=== PATIENT | male | born 1960 | race Caucasian/White ===

== ENCOUNTER 2019-08-06 21:35 | Emergency (ER) | payer MEDICAID ==
[~2019-08-06] VITALS: Ht 175.3 cm; Wt 100.0 kg
[~2019-08-06 21:35] MED LIST: APIX5TAB3 PO; ASPI-1265 PO; CARV3.12 PO; FURO40TA4 PO; LISI2.5T2 PO; OMEP-297 PO; SPIR25TA5 PO
[2019-08-06 22:25] LABS: BASOPHILS # (AUTO) 0.1 X10'3 (0-0.2); BASOPHILS % (AUTO) 1.2 % (0-1); EOSINOPHILS # (AUTO) 0.2 X10'3 (0-0.9); EOSINOPHILS % (AUTO) 2.6 % (0-6); HEMATOCRIT 47.1 % (42.0-52.0); HEMOGLOBIN 16.4 g/dl (14.0-17.9); LYMPHOCYTES # (AUTO) 2.3 X10'3 (1.1-4.8); LYMPHOCYTES % (AUTO) 31.4 % (21-51); MEAN CORPUSCULAR HEMOGLOBIN 32.1 PG (27.0-31.0); MEAN CORPUSCULAR HGB CONC 34.8 g/dL (33.0-36.5); MEAN CORPUSCULAR VOLUME 92.1 FL (78-98); MEAN PLATELET VOLUME 8.8 FL (7.4-10.4); MONOCYTES # (AUTO) 0.7 X10'3 (0-0.9); MONOCYTES % (AUTO) 9.8 % (2-12); PLATELET COUNT 219 X10'3 (140-440); RED BLOOD COUNT 5.11 X10'6 (4.70-6.10); RED CELL DISTRIBUTION WIDTH 13.7 % (11.5-14.5); WHITE BLOOD COUNT 7.3 X10'3 (4.5-11.0)
[2019-08-06 22:36] LABS: ALANINE AMINOTRANSFERASE 37 U/L (12-78); ALBUMIN 3.6 G/DL (3.4-5.0); ALBUMIN/GLOBULIN RATIO 0.9 (1.1-1.5); ALKALINE PHOSPHATASE 65 IU/L (46-116); ANION GAP 9 (8-16); ASPARTATE AMINO TRANSFERASE 20 U/L (10-37); BILIRUBIN,TOTAL 2.4 MG/DL (0.1-1.0); BLOOD UREA NITROGEN 18 MG/DL (7-18); BUN/CREATININE RATIO 13.5 (5.4-32.0); CALCIUM 8.5 MG/DL (8.5-10.1); CHLORIDE 108 MMOL/L (99-107); CREATININE 1.33 MG/DL (0.60-1.10); GLUCOSE 99 MG/DL (70-104); POTASSIUM 4.1 MMOL/L (3.5-5.1); SODIUM 139 MMOL/L (135-145); TOTAL CARBON DIOXIDE 22.3 MMOL/L (24-32); TOTAL PROTEIN 7.4 G/DL (6.4-8.2); eGFR 56 ML/MIN
[2019-08-06] MEDS ORDERED: furosemide 10 MG/1 ML 10ml inj IV ONE (23:40)
[2019-08-07] VITALS: BP 116/82
== END 2019-08-07 00:12 | disposition home or self-care (01) ==
LOC: ER 21:36
DX: I50.9 Heart failure, unspecified (principal); Z86.711 Personal history of pulmonary embolism; Z98.61 Coronary angioplasty status; Z79.82 Long term (current) use of aspirin; Z79.899 Other long term (current) drug therapy
CPT/HCPCS: 36415; 71045; 80053; 83880; 84484; 85025; 93005; 96374; 99284; J1940

== ENCOUNTER 2019-08-11 05:28 | Emergency (ER) | payer MEDICAID ==
[~2019-08-11] VITALS: Ht 175.3 cm; Wt 100.0 kg
[2019-08-11 06:16] LABS: BASOPHILS # (AUTO) 0.1 X10'3 (0-0.2); BASOPHILS % (AUTO) 1.4 % (0-1); EOSINOPHILS # (AUTO) 0.2 X10'3 (0-0.9); EOSINOPHILS % (AUTO) 3.1 % (0-6); HEMATOCRIT 47.5 % (42.0-52.0); HEMOGLOBIN 16.6 g/dl (14.0-17.9); LYMPHOCYTES # (AUTO) 2.7 X10'3 (1.1-4.8); LYMPHOCYTES % (AUTO) 35.9 % (21-51); MEAN CORPUSCULAR VOLUME 91.6 FL (78-98); MEAN PLATELET VOLUME 8.6 FL (7.4-10.4); MONOCYTES # (AUTO) 0.7 X10'3 (0-0.9); MONOCYTES % (AUTO) 9.2 % (2-12); NEUTROPHILS # (AUTO) 3.8 X10'3 (1.8-7.7); NEUTROPHILS % (AUTO) 50.4 % (42-75); PLATELET COUNT 240 X10'3 (140-440); RED BLOOD COUNT 5.18 X10'6 (4.70-6.10); RED CELL DISTRIBUTION WIDTH 13.9 % (11.5-14.5); WHITE BLOOD COUNT 7.6 X10'3 (4.5-11.0)
[2019-08-11 06:30] LABS: ALANINE AMINOTRANSFERASE 30 U/L (12-78); ALBUMIN 3.5 G/DL (3.4-5.0); ALBUMIN/GLOBULIN RATIO 0.9 (1.1-1.5); ALKALINE PHOSPHATASE 62 IU/L (46-116); ANION GAP 11 (8-16); ASPARTATE AMINO TRANSFERASE 18 U/L (10-37); BILIRUBIN,TOTAL 1.7 MG/DL (0.1-1.0); BLOOD UREA NITROGEN 22 MG/DL (7-18); BUN/CREATININE RATIO 15.4 (5.4-32.0); CALCIUM 8.5 MG/DL (8.5-10.1); CHLORIDE 105 MMOL/L (99-107); CREATININE 1.43 MG/DL (0.60-1.10); GLUCOSE 135 MG/DL (70-104); SODIUM 136 MMOL/L (135-145); TOTAL CARBON DIOXIDE 20.1 MMOL/L (24-32); TOTAL PROTEIN 7.3 G/DL (6.4-8.2); eGFR 51 ML/MIN
[2019-08-11] MEDS ORDERED: furosemide 10 MG/1 ML 10ml inj IV ONE (06:40)
[2019-08-11] MEDS ORDERED: LISI-604 PO (06:44)
[2019-08-11] MEDS ORDERED: CARV3.122 PO (06:44)
[2019-08-11] MEDS ORDERED: FURO-149 PO (06:44)
[2019-08-11 06:57] VITALS: BP 122/86
[2019-08-11 07:35] LABS: CLARITY,URINE CLEAR (Clear); COLOR,URINE YELLOW (Yellow); GLUCOSE, URINE NEGATIVE (Neg); KETONES,URINE NEGATIVE (Neg); LEUKOCYTE ESTERASE ,URINE NEGATIVE (Neg); NITRITES, URINE NEGATIVE (Neg); OCCULT BLOOD,URINE NEGATIVE (Neg); PH,URINE 5.5 (4.8-8.0); PROTEIN,URINE NEGATIVE (Neg); UROBILINOGEN,URINE 0.2 E.U/dL (0.2-1.0)
[2019-08-11 07:36] LABS: UA COLLECTION TYPE CLN CATCH MIDSTREAM
[2019-08-11 07:42] LABS: URINE AMPHETAMINE SCREEN POSITIVE (Neg); URINE BARBITUATE SCREEN NEGATIVE (Neg); URINE BENZODIAZEPINES SCREEN NEGATIVE (Neg); URINE CANNABINOID SCREEN NEGATIVE (Neg); URINE COCAINE SCREEN NEGATIVE (Neg); URINE METHADONE SCREEN NEGATIVE (Neg); URINE OPIATE SCREEN NEGATIVE (Neg); URINE PHENCYCLIDINE SCREEN NEGATIVE (Neg)
== END 2019-08-11 08:42 | disposition home or self-care (01) ==
LOC: ER 05:29
DX: I50.9 Heart failure, unspecified (principal); R22.43 Localized swelling, mass and lump, lower limb, bilateral; Z86.711 Personal history of pulmonary embolism; Z98.61 Coronary angioplasty status; Z79.82 Long term (current) use of aspirin; Z79.899 Other long term (current) drug therapy
CPT/HCPCS: 36415; 71045; 80053; 80305; 81003; 83880; 84484; 85025; 93005; 96374; 99284; J1940

== ENCOUNTER 2019-09-29 13:03 | Inpatient (IN) | payer MEDICAID ==
[~2019-09-29] VITALS: Ht 172.7 cm; Wt 90.9 kg
[2019-09-29] VITALS (11 sets, daily range): BP systolic 110–133; BP diastolic 85–106
[~2019-09-29 13:03] MED LIST changes: +CARV3.122 PO; +FURO-149 PO; +LISI-604 PO; -OMEP-297 PO; +OMEP20CA15 PO
[2019-09-29 13:51] LABS: BASOPHILS # (AUTO) 0.1 X10'3 (0-0.2); BASOPHILS % (AUTO) 0.9 % (0-1); EOSINOPHILS # (AUTO) 0.1 X10'3 (0-0.9); EOSINOPHILS % (AUTO) 1.2 % (0-6); HEMATOCRIT 46.7 % (42.0-52.0); HEMOGLOBIN 15.9 g/dl (14.0-17.9); LYMPHOCYTES # (AUTO) 2.4 X10'3 (1.1-4.8); LYMPHOCYTES % (AUTO) 26.8 % (21-51); MEAN CORPUSCULAR HGB CONC 33.9 g/dL (33.0-36.5); MEAN CORPUSCULAR VOLUME 91.4 FL (78-98); MEAN PLATELET VOLUME 8.4 FL (7.4-10.4); MONOCYTES # (AUTO) 0.8 X10'3 (0-0.9); MONOCYTES % (AUTO) 8.6 % (2-12); NEUTROPHILS # (AUTO) 5.5 X10'3 (1.8-7.7); NEUTROPHILS % (AUTO) 62.5 % (42-75); PLATELET COUNT 215 X10'3 (140-440); RED BLOOD COUNT 5.12 X10'6 (4.70-6.10); RED CELL DISTRIBUTION WIDTH 14.1 % (11.5-14.5); WHITE BLOOD COUNT 8.9 X10'3 (4.5-11.0)
[2019-09-29] MEDS ORDERED: iohexol 350MG/ML 100ml bottle IV ONE (14:02)
[2019-09-29 14:09] LABS: PARTIAL THROMBOPLASTIN TIME 28 SECONDS (22-32)
[2019-09-29 14:10] LABS: ALANINE AMINOTRANSFERASE 79 U/L (12-78); ALBUMIN 3.6 G/DL (3.4-5.0); ALKALINE PHOSPHATASE 82 IU/L (46-116); ANION GAP 13 (8-16); ASPARTATE AMINO TRANSFERASE 99 U/L (10-37); BILIRUBIN,TOTAL 2.6 MG/DL (0.1-1.0); BLOOD UREA NITROGEN 20 MG/DL (7-18); BUN/CREATININE RATIO 14.4 (5.4-32.0); CALCIUM 9.1 MG/DL (8.5-10.1); CHLORIDE 106 MMOL/L (99-107); CREATININE 1.39 MG/DL (0.60-1.10); GLUCOSE 112 MG/DL (70-104); POTASSIUM 4.3 MMOL/L (3.5-5.1); SODIUM 137 MMOL/L (135-145); TOTAL CARBON DIOXIDE 17.8 MMOL/L (24-32); TOTAL PROTEIN 7.3 G/DL (6.4-8.2); eGFR 53 ML/MIN
[2019-09-29] MEDS ORDERED: heparin 25,000 UNIT/250ml bag 250 ML IV SCH ×2 (14:19→14:35)
[2019-09-29] MEDS ORDERED: aspirin 81mg tab.chew PO ONE (14:20)
[2019-09-29] MEDS ORDERED: heparin 10,000 units/1 ML INJ IV ONE (14:20)
[2019-09-29] MEDS ORDERED: heparin 10,000 units/1 ML INJ IV PRN (14:20)
[2019-09-29] MEDS ORDERED: APIX5TAB3 PO (14:24)
[2019-09-29] MEDS ORDERED: normal saline 1000ml 1,000 ML IV SCH ×2 (15:14→20:15)
[2019-09-29] MEDS ORDERED: potassium CL 10mEq/100ml bag 100 ML IV PRN ×2 (15:15)
[2019-09-29] MEDS ORDERED: ondansetron/PF 4mg/2ml inj IV PRN (15:15)
[2019-09-29] MEDS ORDERED: magnesium Cl slow-release 64mg tablet PO PRN (15:15)
[2019-09-29] MEDS ORDERED: diphenhydrAMINE 25mg capsule PO PRN (15:15)
[2019-09-29] MEDS ORDERED: potassium Cl 20 mEq SR tablet PO PRN ×2 (15:15)
[2019-09-29] MEDS ORDERED: bisacodyl 10mg suppository rectal RC PRN (15:15)
[2019-09-29] MEDS ORDERED: acetaminophen 650mg rectal suppository RC PRN (15:15)
[2019-09-29] MEDS ORDERED: acetaminophen 325mg tablet PO PRN ×2 (15:15)
[2019-09-29] MEDS ORDERED: magnesium 4gm in 100ml NS 100 ML IV PRN (15:15)
[2019-09-29] MEDS ORDERED: HYDROcodone/acetaminophen 5mg/325mg tablet PO PRN (15:15)
[2019-09-29] MEDS ORDERED: mag hydrox/Alum hydrox/simeth 30ml oral suspension PO PRN (15:15)
[2019-09-29] MEDS ORDERED: magnesium 2GM in 50ml NS 50 ML IV PRN (15:15)
[2019-09-29] MEDS ORDERED: HYDROcodone/acetaminophen 10/325mg tab PO PRN (15:15)
[2019-09-29] MEDS ORDERED: magnesium hydroxide 30ml (MOM) UD suspension PO PRN (15:15)
[2019-09-29] MEDS ORDERED: morphine 2 MG/ML inj. syringe IV PRN ×2 (15:15)
--- NOTE | 2019-09-29 16:05 | NUR ---
Received patient report from LIGIA Yarbrough. Awaiting patient arrival to room 3011K.
--- NOTE | 2019-09-29 16:10 | NUR ---
Patient arrived from ED via wheelchair. Patient ambulated from wheelchair to bed. Vital signs are. temp. 97.7F, RR 16, 97% on room air, HR 117, BP 122/100. Bed locked and lowered, nonskid socks on, call light in reach, and in no acute distress.
[2019-09-29] MEDS ORDERED: midazolam 2 mg/2 ml injection ONE ×2 (16:36→17:24)
[2019-09-29] MEDS ORDERED: fentaNYL/PF 50MCG/1 ML 2ML syringe ONE ×2 (16:36→17:24)
[2019-09-29] MEDS ORDERED: iohexol 350 MG/ML 50ML vial IV ONE (16:37)
[2019-09-29] MEDS ORDERED: heparin 1,000unit/ml 10ml vial 10 ML ONE (16:37)
[2019-09-29] MEDS ORDERED: LIDOcaine 1% (10mg/ml)w/preservative injection 20ml MDV ONE (16:37)
[2019-09-29] MEDS ORDERED: iohexol 350 MG/1 ML 200ml bottle ONE (16:37)
[2019-09-29] MEDS ORDERED: heparin 1,000 UNITS/NS 500ml 500 ML ONE ×2 (16:37)
--- NOTE | 2019-09-29 16:50 | NUR ---
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
[2019-09-29 17:50] LABS: ISTAT HGB ART 14.3 g/dl (14.0-18.0); ISTAT Hct ART 42 %PCV (42-52); ISTAT Hct MIX 39 %PCV (42-52); ISTAT O2 SATURATION ARTERIAL 95 % (95-98); ISTAT O2 SATURATION MIX VENOUS 56 % (60-80); ISTAT SOURCE ART; ISTAT SOURCE MIX
--- NOTE | 2019-09-29 18:05 | NUR ---
Patient back from laboratory phlebotomist
--- NOTE | 2019-09-29 18:14 | NUR ---
Problems reprioritized. Patient report given, questions answered & plan of care reviewed with LIGIA Dalton. Patient stable at transfer of care.
--- NOTE | 2019-09-29 18:19 | NUR ---
Orders for heart healthy diet put in per order from Dr. Mc.
--- NOTE | 2019-09-29 19:00 | NUR ---
Page sent to Dr. Carlson regarding patient's order for NS@75. [address] Dr[address] Mc's heart cath report patient has an EF of 15% and is in need of referral for a heart transplant. Awaiting return phone call with further orders Addendum: 09/29/19 at 2018 by Krystle Zhou RN Spoke with Dr. Almonte regarding IV fluid order and she gave an order to decrease fluids to only 20mL/hr d/t severe risk of fluid overload with such a severely decreased EF
[2019-09-29] MEDS ORDERED: OXAZEpam 15mg capsule PO PRN (19:05)
[2019-09-29] MEDS ORDERED: proCHLORperazine 10 MG/2 ml inj IV PRN (19:05)
[2019-09-29] MEDS ORDERED: nitroGLYCERIN 0.4mg SUBLingual tab SL PRN (19:05)
[2019-09-29] MEDS: K and/or MAG REPLACEMENT MC SCH (19:36)
[2019-09-29] MEDS: atorvastatin 20mg tablet PO SCH (19:44)
[2019-09-29] MEDS: carVEDilol 3.125mg tablet PO SCH (19:45)
[2019-09-29] MEDS ORDERED: ipratropium/albuterol 3ml nebule NEB PRN (23:05)
[2019-09-30] MEDS: ipratropium/albuterol 3ml nebule NEB SCH ×4 (02:45→21:04)
[2019-09-30 03:00] VITALS: BP 116/73
[2019-09-30 06:00] VITALS: BP 111/79
--- NOTE | 2019-09-30 06:06 | NUR ---
Problems reprioritized. Patient report given, questions answered & plan of care reviewed with Dali STRONG.
--- NOTE | 2019-09-30 06:08 | NUR ---
Student Medication Administration: For this medication-pass time frame, all medication were reviewed, dispensed, administered and documented per hospital policy by Stephanie ROSARIO. Student documentation: I have reviewed and agree with all interventions, assessments performed and documented by Stephanie ROSARIO.
[2019-09-30 06:27] LABS: BASOPHILS % (AUTO) 0.5 % (0-1); EOSINOPHILS % (AUTO) 0.6 % (0-6); HEMATOCRIT 44.3 % (42.0-52.0); HEMOGLOBIN 15.4 g/dl (14.0-17.9); LYMPHOCYTES # (AUTO) 1.7 X10'3 (1.1-4.8); LYMPHOCYTES % (AUTO) 21.2 % (21-51); MEAN CORPUSCULAR HEMOGLOBIN 31.8 PG (27.0-31.0); MEAN CORPUSCULAR HGB CONC 34.8 g/dL (33.0-36.5); MEAN CORPUSCULAR VOLUME 91.2 FL (78-98); MEAN PLATELET VOLUME 8.9 FL (7.4-10.4); MONOCYTES # (AUTO) 0.7 X10'3 (0-0.9); MONOCYTES % (AUTO) 9.1 % (2-12); NEUTROPHILS # (AUTO) 5.5 X10'3 (1.8-7.7); NEUTROPHILS % (AUTO) 68.6 % (42-75); PLATELET COUNT 170 X10'3 (140-440); RED BLOOD COUNT 4.85 X10'6 (4.70-6.10); RED CELL DISTRIBUTION WIDTH 14.2 % (11.5-14.5); WHITE BLOOD COUNT 7.9 X10'3 (4.5-11.0)
--- NOTE | 2019-09-30 06:30 | NUR ---
Patient in room PCU 3017. I have received report from LIGIA Dalton and had the opportunity to ask questions and assume patient care.
[2019-09-30 06:45] LABS: ALANINE AMINOTRANSFERASE 459 U/L (12-78); ALBUMIN 3.2 G/DL (3.4-5.0); ALBUMIN/GLOBULIN RATIO 0.9 (1.1-1.5); ALKALINE PHOSPHATASE 75 IU/L (46-116); ANION GAP 12 (8-16); ASPARTATE AMINO TRANSFERASE 513 U/L (10-37); BILIRUBIN,TOTAL 3.1 MG/DL (0.1-1.0); BLOOD UREA NITROGEN 21 MG/DL (7-18); CALCIUM 8.6 MG/DL (8.5-10.1); CHLORIDE 103 MMOL/L (99-107); CHOL/HDL RATIO 2.9 (0.00-4.99); CHOLESTEROL 78 MG/DL (0-200); GLUCOSE 102 MG/DL (70-104); HDL CHOLESTEROL 27 MG/DL (35-60); LDL CHOLESTEROL 54 MG/DL (50-100); MAGNESIUM 1.8 MG/DL (1.5-2.4); PHOSPHORUS 3.6 MG/DL (2.3-4.5); POTASSIUM 4.7 MMOL/L (3.5-5.1); SODIUM 136 MMOL/L (135-145); TOTAL CARBON DIOXIDE 21.2 MMOL/L (24-32); TOTAL PROTEIN 6.7 G/DL (6.4-8.2); TRIGLYCERIDES 46 MG/DL (20-135); eGFR 52 ML/MIN
[2019-09-30] MEDS ORDERED: furosemide 40mg/4ml inj IV SCH (08:00)
[2019-09-30] MEDS ORDERED: lisinopril 5mg tablet PO SCH (08:00)
[2019-09-30] MEDS: K and/or MAG REPLACEMENT MC SCH ×2 (08:00→19:38)
[2019-09-30] MEDS ORDERED: pantoprazole 40mg Tablet.DR PO SCH (08:00)
[2019-09-30] MEDS ORDERED: furosemide 40mg tablet PO SCH (08:00)
[2019-09-30] MEDS: atorvastatin 20mg tablet PO SCH (10:35)
[2019-09-30] MEDS: carVEDilol 3.125mg tablet PO SCH ×2 (10:36→19:55)
[2019-09-30] MEDS: aspirin 81mg tab.chew PO SCH (10:36)
[2019-09-30 11:00] VITALS: BP 117/94
[2019-09-30 15:00] VITALS: BP 95/67
[2019-09-30 18:00] VITALS: BP 89/61
[2019-09-30] MEDS: furosemide 40mg/4ml inj IV SCH (18:21)
--- NOTE | 2019-09-30 18:44 | NUR ---
Patient in room PCU 3017. I have received report from Dali STRONG and had the opportunity to ask questions and assume patient care.
--- NOTE | 2019-09-30 18:58 | NUR ---
Problems reprioritized. Patient report given, questions answered & plan of care reviewed with LIGIA Kiran.
[2019-09-30 22:00] VITALS: BP 90/59
[2019-10-01 02:00] VITALS: BP 84/49
[2019-10-01] MEDS: furosemide 40mg/4ml inj IV SCH ×2 (02:00→07:36)
[2019-10-01] MEDS: ipratropium/albuterol 3ml nebule NEB SCH ×2 (02:58→09:00)
[2019-10-01 06:00] VITALS: BP 103/71
--- NOTE | 2019-10-01 06:13 | NUR ---
Problems reprioritized. Patient report given, questions answered & plan of care reviewed with Darlene STRONG.
[2019-10-01 06:14] LABS: BASOPHILS # (AUTO) 0.1 X10'3 (0-0.2); BASOPHILS % (AUTO) 0.7 % (0-1); EOSINOPHILS # (AUTO) 0.2 X10'3 (0-0.9); EOSINOPHILS % (AUTO) 2.1 % (0-6); HEMATOCRIT 41.1 % (42.0-52.0); HEMOGLOBIN 14.3 g/dl (14.0-17.9); LYMPHOCYTES # (AUTO) 1.6 X10'3 (1.1-4.8); LYMPHOCYTES % (AUTO) 21.3 % (21-51); MEAN CORPUSCULAR HEMOGLOBIN 31.3 PG (27.0-31.0); MEAN CORPUSCULAR HGB CONC 34.6 g/dL (33.0-36.5); MEAN CORPUSCULAR VOLUME 90.4 FL (78-98); MEAN PLATELET VOLUME 9.2 FL (7.4-10.4); MONOCYTES # (AUTO) 0.7 X10'3 (0-0.9); MONOCYTES % (AUTO) 9.6 % (2-12); NEUTROPHILS # (AUTO) 5.1 X10'3 (1.8-7.7); NEUTROPHILS % (AUTO) 66.3 % (42-75); PLATELET COUNT 164 X10'3 (140-440); RED BLOOD COUNT 4.55 X10'6 (4.70-6.10); RED CELL DISTRIBUTION WIDTH 14.2 % (11.5-14.5); WHITE BLOOD COUNT 7.7 X10'3 (4.5-11.0)
--- NOTE | 2019-10-01 06:21 | NUR ---
Patient in room PCU 3017. I have received report from Magno STRONG and had the opportunity to ask questions and assume patient care.
[2019-10-01 06:46] LABS: ALANINE AMINOTRANSFERASE 565 U/L (12-78); ALKALINE PHOSPHATASE 94 IU/L (46-116); ANION GAP 11 (8-16); ASPARTATE AMINO TRANSFERASE 450 U/L (10-37); BILIRUBIN,TOTAL 2.7 MG/DL (0.1-1.0); BLOOD UREA NITROGEN 26 MG/DL (7-18); BUN/CREATININE RATIO 14.1 (5.4-32.0); CALCIUM 8.2 MG/DL (8.5-10.1); CHLORIDE 102 MMOL/L (99-107); CREATININE 1.84 MG/DL (0.60-1.10); GLUCOSE 84 MG/DL (70-104); MAGNESIUM 1.7 MG/DL (1.5-2.4); POTASSIUM 4.3 MMOL/L (3.5-5.1); SODIUM 135 MMOL/L (135-145); TOTAL CARBON DIOXIDE 22.1 MMOL/L (24-32); TOTAL PROTEIN 6.1 G/DL (6.4-8.2); eGFR 38 ML/MIN
[2019-10-01 07:10] LABS: HIV ANTIBODY 1&2 RAPID NON-REACTIVE (Neg)
[2019-10-01] MEDS: atorvastatin 20mg tablet PO SCH (07:37)
[2019-10-01] MEDS ORDERED: pantoprazole 40mg Tablet.DR PO SCH (07:37)
[2019-10-01] MEDS: carVEDilol 3.125mg tablet PO SCH (07:39)
[2019-10-01] MEDS: aspirin 81mg tab.chew PO SCH (07:39)
[2019-10-01] MEDS ORDERED: heparin, porcine 5000 units/ml vial SQ SCH (08:00)
[2019-10-01] MEDS: K and/or MAG REPLACEMENT MC SCH (08:00)
[2019-10-01] MEDS ORDERED: lisinopril 20mg tablet PO SCH (08:00)
[2019-10-01] MEDS ORDERED: spironolactone 25 MG tablet PO SCH (08:30)
[2019-10-01] MEDS ORDERED: LISI-600 PO (09:43)
[2019-10-01] MEDS ORDERED: NITR0.4T51 SL (09:43)
[2019-10-01] MEDS ORDERED: ATOR20TA66 PO (09:43)
[2019-10-01] MEDS ORDERED: SPIR25TA PO (09:43)
[2019-10-01] MEDS ORDERED: ALBU8.5H8 INH (09:45)
--- NOTE | 2019-10-01 10:20 | NUR ---
Dr. Carlson at the bedside, wants to go ahead with discharge of the pt, wants to wait until case management talks with pt about OP options. Will continue to monitor closely.
[2019-10-01 11:00] VITALS: BP 104/65
--- NOTE | 2019-10-01 12:33 | NUR ---
Stable for discharge per MD orders, discharge instructions reviewed with pt and all questions answered, new prescriptions called to [facility] on [facility], Tele monitor and PIV discontinued, all belongings collected and sent with pt, left the unit at 1230 in a wheelchair with nurses aide.
== END 2019-10-01 12:30 | disposition home or self-care (01) | DRG 190 ==
LOC: ER 13:03 → ED HOLD 15:14 → EDBEDREQ 15:39 → PCU 3S 16:28
PROVIDERS: ADMIT Family Medicine; ATTEND Family Medicine
PROC: 4A023N7 Measurement of Cardiac Sampling and Pressure, Left Heart, Percutaneous Approach (ICD-10-PCS; principal; 2019-09-29)
PROC: B2111ZZ Fluoroscopy of Multiple Coronary Arteries using Low Osmolar Contrast (ICD-10-PCS; 2019-09-29)
PROC: B2151ZZ Fluoroscopy of Left Heart using Low Osmolar Contrast (ICD-10-PCS; 2019-09-29)
PROC: B32T1ZZ Computerized Tomography (CT Scan) of Left Pulmonary Artery using Low Osmolar Contrast (ICD-10-PCS; 2019-09-29)
PROC: B3201ZZ Computerized Tomography (CT Scan) of Thoracic Aorta using Low Osmolar Contrast (ICD-10-PCS; 2019-09-29)
PROC: B32S1ZZ Computerized Tomography (CT Scan) of Right Pulmonary Artery using Low Osmolar Contrast (ICD-10-PCS; 2019-09-29)
DX: I21.4 Non-ST elevation (NSTEMI) myocardial infarction (principal); N17.9 Acute kidney failure, unspecified; F15.20 Other stimulant dependence, uncomplicated; I50.82 Biventricular heart failure; I13.0 Hypertensive heart and chronic kidney disease with heart failure and stage 1 through stage 4 chronic kidney disease, or unspecified chronic kidney disease; I20.0 Unstable angina; I25.5 Ischemic cardiomyopathy; I34.0 Nonrheumatic mitral (valve) insufficiency; N18.9 Chronic kidney disease, unspecified; Z79.82 Long term (current) use of aspirin; Z82.3 Family history of stroke; Z82.49 Family history of ischemic heart disease and other diseases of the circulatory system; Z86.711 Personal history of pulmonary embolism; Z91.19 Patient's noncompliance with other medical treatment and regimen; Z95.5 Presence of coronary angioplasty implant and graft
CPT/HCPCS: 36415; 71045; 71275; 80053; 80061; 82803; 83036; 83735; 84100; 84484; 85014; 85025; 85610; 85730; 86703; 87081; 93005; 93306; 93458; 93460; 94640; 94760; 99152; 99153; A4620; A6258; C1760; C1769; G0378; J1644; J1940; J2001; J2250; J2405; J3010; J7030; Q9967

== ENCOUNTER 2019-10-01 22:06 | Emergency (ER) | payer MEDICAID ==
[~2019-10-01] VITALS: Ht 175.3 cm; Wt 90.9 kg
[~2019-10-01 22:06] MED LIST changes: +ALBU8.5H8 INH; -APIX5TAB3 PO; +ATOR20TA66 PO; -CARV3.122 PO; -FURO-149 PO; +LISI-600 PO; -LISI-604 PO; -LISI2.5T2 PO; +NITR0.4T51 SL; +SPIR25TA PO; -SPIR25TA5 PO
[2019-10-01] MEDS ORDERED: ondansetron/PF 4mg/2ml inj IV ONE (22:55)
--- NOTE | 2019-10-01 22:58 | NUR ---
INFORMED EDMD INNA OF PT VOMITING/DRY HEAVING. VERBAL ORDER RECEIVED FOR ZOFRAN 4MG IV X1 DOSE NOW. ORDER PLACED
[2019-10-01 23:03] LABS: BASOPHILS # (AUTO) 0.1 X10'3 (0-0.2); BASOPHILS % (AUTO) 0.7 % (0-1); EOSINOPHILS # (AUTO) 0.2 X10'3 (0-0.9); EOSINOPHILS % (AUTO) 2.1 % (0-6); HEMATOCRIT 44.7 % (42.0-52.0); HEMOGLOBIN 15.3 g/dl (14.0-17.9); LYMPHOCYTES # (AUTO) 2.2 X10'3 (1.1-4.8); LYMPHOCYTES % (AUTO) 24.8 % (21-51); MEAN CORPUSCULAR HEMOGLOBIN 31.2 PG (27.0-31.0); MEAN CORPUSCULAR HGB CONC 34.2 g/dL (33.0-36.5); MEAN CORPUSCULAR VOLUME 91.2 FL (78-98); MEAN PLATELET VOLUME 9.1 FL (7.4-10.4); MONOCYTES % (AUTO) 11.1 % (2-12); NEUTROPHILS # (AUTO) 5.5 X10'3 (1.8-7.7); NEUTROPHILS % (AUTO) 61.3 % (42-75); PLATELET COUNT 202 X10'3 (140-440); WHITE BLOOD COUNT 8.9 X10'3 (4.5-11.0)
--- NOTE | 2019-10-01 23:13 | NUR ---
Pt stopped vomiting and resting quietly.
[2019-10-01 23:14] LABS: ALANINE AMINOTRANSFERASE 500 U/L (12-78); ALBUMIN 3.3 G/DL (3.4-5.0); ALBUMIN/GLOBULIN RATIO 0.9 (1.1-1.5); ALKALINE PHOSPHATASE 125 IU/L (46-116); ANION GAP 11 (8-16); ASPARTATE AMINO TRANSFERASE 254 U/L (10-37); BILIRUBIN,TOTAL 2.2 MG/DL (0.1-1.0); BLOOD UREA NITROGEN 34 MG/DL (7-18); BUN/CREATININE RATIO 17.3 (5.4-32.0); CALCIUM 8.1 MG/DL (8.5-10.1); CHLORIDE 101 MMOL/L (99-107); CREATININE 1.96 MG/DL (0.60-1.10); GLUCOSE 107 MG/DL (70-104); SODIUM 133 MMOL/L (135-145); TOTAL CARBON DIOXIDE 21.4 MMOL/L (24-32); TOTAL PROTEIN 6.8 G/DL (6.4-8.2); eGFR 36 ML/MIN
[2019-10-01 23:45] LABS: ETHANOL < 0.010 GM/DL (0.0-0.010)
--- NOTE | 2019-10-01 23:54 | NUR ---
MD requesting UA, Patient advises he cannot "Pee", advised I can straigh cath. He said absoulutly not, MD advised.
[2019-10-02 00:37] LABS: URINE AMPHETAMINE SCREEN POSITIVE (Neg); URINE BARBITUATE SCREEN NEGATIVE (Neg); URINE BENZODIAZEPINES SCREEN POSITIVE (Neg); URINE CANNABINOID SCREEN NEGATIVE (Neg); URINE COCAINE SCREEN NEGATIVE (Neg); URINE METHADONE SCREEN NEGATIVE (Neg); URINE OPIATE SCREEN NEGATIVE (Neg); URINE PHENCYCLIDINE SCREEN NEGATIVE (Neg)
[2019-10-02] MEDS ORDERED: LORazepam 2 mg/ml vial IV ONE (01:20)
[2019-10-02] MEDS ORDERED: furosemide 10 MG/1 ML 10ml inj IV ONE (01:20)
[2019-10-02 03:22] VITALS: BP 119/84
== END 2019-10-02 03:14 | disposition home or self-care (01) ==
LOC: ER 22:07
DX: I50.9 Heart failure, unspecified (principal); I42.9 Cardiomyopathy, unspecified; F15.90 Other stimulant use, unspecified, uncomplicated; Z86.711 Personal history of pulmonary embolism; Z98.62 Peripheral vascular angioplasty status; Z72.89 Other problems related to lifestyle; Z79.899 Other long term (current) drug therapy; Z79.82 Long term (current) use of aspirin
CPT/HCPCS: 36415; 71045; 80053; 80305; 80320; 83880; 84484; 85025; 93005; 96374; 96375; 99285; J1940; J2060; J2405

== ENCOUNTER 2021-05-07 12:34 | Emergency (ER) | payer MEDICAID ==
[~2021-05-07] VITALS: Ht 170.2 cm; Wt 109.3 kg
[~2021-05-07 12:34] MED LIST changes: +ALBU8.5H17 INH; -ALBU8.5H8 INH; -LISI-600 PO; +LISI20TA28 PO
[2021-05-07 13:14] LABS: BASOPHILS # (AUTO) 0.1 X10'3 (0-0.2); BASOPHILS % (AUTO) 0.8 % (0-1); EOSINOPHILS # (AUTO) 0.3 X10'3 (0-0.9); EOSINOPHILS % (AUTO) 2.8 % (0-6); HEMATOCRIT 41.1 % (42.0-52.0); HEMOGLOBIN 13.7 g/dl (14.0-17.9); LYMPHOCYTES # (AUTO) 1.3 X10'3 (1.1-4.8); LYMPHOCYTES % (AUTO) 11.2 % (21-51); MEAN CORPUSCULAR HEMOGLOBIN 32.3 PG (27.0-31.0); MEAN CORPUSCULAR HGB CONC 33.4 g/dL (33.0-36.5); MEAN CORPUSCULAR VOLUME 96.8 FL (78-98); MEAN PLATELET VOLUME 7.4 FL (7.4-10.4); MONOCYTES # (AUTO) 0.8 X10'3 (0-0.9); MONOCYTES % (AUTO) 6.7 % (2-12); NEUTROPHILS # (AUTO) 9.4 X10'3 (1.8-7.7); NEUTROPHILS % (AUTO) 78.5 % (42-75); PLATELET COUNT 439 X10'3 (140-440); RED BLOOD COUNT 4.25 X10'6 (4.70-6.10); RED CELL DISTRIBUTION WIDTH 13.7 % (11.5-14.5); WHITE BLOOD COUNT 11.9 X10'3 (4.5-11.0)
[2021-05-07 13:26] LABS: ALANINE AMINOTRANSFERASE 189 U/L (12-78); ALBUMIN 2.5 G/DL (3.4-5.0); ALBUMIN/GLOBULIN RATIO 0.5 (1.1-1.5); ALKALINE PHOSPHATASE 136 IU/L (46-116); ANION GAP 11 (8-16); ASPARTATE AMINO TRANSFERASE 94 U/L (10-37); BILIRUBIN,TOTAL 0.6 MG/DL (0.1-1.0); BLOOD UREA NITROGEN 26 MG/DL (7-18); BUN/CREATININE RATIO 19.3 (5.4-32.0); CHLORIDE 100 MMOL/L (99-107); CREATININE 1.35 MG/DL (0.60-1.10); GLUCOSE 119 MG/DL (70-104); SODIUM 136 MMOL/L (135-145); TOTAL CARBON DIOXIDE 24.8 MMOL/L (24-32); eGFR 54 ML/MIN
[2021-05-07 13:45] VITALS: BP 100/69
[2021-05-07] MEDS ORDERED: albuterol 2.5 MG/3 ML nebule NEB ONE (14:10)
[2021-05-07] MEDS ORDERED: methylPREDNISolone sod succ 125mg/2ml vial IV ONE (14:10)
[2021-05-07] MEDS ORDERED: furosemide 10 MG/1 ML 10ml inj IV ONE (15:35)
== END 2021-05-07 18:01 | disposition home or self-care (01) ==
LOC: ER 12:34
DX: R06.02 Shortness of breath (principal); Z20.822 Contact with and (suspected) exposure to COVID-19; I50.9 Heart failure, unspecified; R05 Cough; R50.9 Fever, unspecified; F15.90 Other stimulant use, unspecified, uncomplicated; Z86.711 Personal history of pulmonary embolism; Z98.890 Other specified postprocedural states; Z72.89 Other problems related to lifestyle; Z79.82 Long term (current) use of aspirin; Z79.899 Other long term (current) drug therapy
CPT/HCPCS: 71045; 80053; 83880; 84484; 85025; 87635; 93005; 94640; 96374; 96375; 99285; C9803; J1940; J2930; 94760

== ENCOUNTER 2022-08-12 00:37 | Inpatient (IN) | payer MEDICAID ==
[~2022-08-12] VITALS: Ht 172.7 cm; Wt 111.4 kg
--- NOTE | 2022-08-12 01:30 | NUR ---
PT TO XRAY WITH NURSE ORTHOPEDIC
[2022-08-12 02:29] LABS: BASOPHILS # (AUTO) 0.1 X10'3 (0-0.2); EOSINOPHILS # (AUTO) 0.6 X10'3 (0-0.9); EOSINOPHILS % (AUTO) 5.6 % (0-6); HEMATOCRIT 48.3 % (42.0-52.0); HEMOGLOBIN 16.7 g/dl (14.0-17.9); LYMPHOCYTES # (AUTO) 1.7 X10'3 (1.1-4.8); LYMPHOCYTES % (AUTO) 14.6 % (21-51); MEAN CORPUSCULAR HEMOGLOBIN 32.5 PG (27.0-31.0); MEAN CORPUSCULAR HGB CONC 34.5 g/dL (33.0-36.5); MEAN CORPUSCULAR VOLUME 94.2 FL (78-98); MEAN PLATELET VOLUME 7.7 FL (7.4-10.4); MONOCYTES # (AUTO) 0.8 X10'3 (0-0.9); MONOCYTES % (AUTO) 6.7 % (2-12); NEUTROPHILS # (AUTO) 8.2 X10'3 (1.8-7.7); NEUTROPHILS % (AUTO) 72.1 % (42-75); PLATELET COUNT 217 X10'3 (140-440); RED BLOOD COUNT 5.13 X10'6 (4.70-6.10); RED CELL DISTRIBUTION WIDTH 13.3 % (11.5-14.5); WHITE BLOOD COUNT 11.4 X10'3 (4.5-11.0)
[2022-08-12] MEDS ORDERED: ipratropium/albuterol 3ml nebule NEB ONE (02:30)
[2022-08-12] MEDS ORDERED: methylPREDNISolone sod succ 125mg/2ml vial IV ONE (02:30)
[2022-08-12] MEDS ORDERED: albuterol 2.5 MG/3 ML nebule CONTNEB PRN (02:30)
[2022-08-12] MEDS ORDERED: normal saline 1000ML IV soln IVB ONE (02:30)
[2022-08-12] MEDS ORDERED: magnesium 2GM in 50ml NS 50 ML IV ONE (02:30)
[2022-08-12 02:51] LABS: ALBUMIN 3.7 G/DL (3.4-5.0); ANION GAP 9 (8-16); BLOOD UREA NITROGEN 20 MG/DL (7-18); BUN/CREATININE RATIO 17.9 (5.4-32.0); CHLORIDE 101 MMOL/L (99-107); CREATININE 1.12 MG/DL (0.60-1.10); GLUCOSE 111 MG/DL (70-104); MAGNESIUM 1.9 MG/DL (1.5-2.4); POTASSIUM 4.2 MMOL/L (3.5-5.1); SODIUM 137 MMOL/L (135-145); TOTAL CARBON DIOXIDE 26.8 MMOL/L (24-32); TOTAL PROTEIN 8.4 G/DL (6.4-8.2); eGFR 67 ML/MIN
[2022-08-12 02:52] LABS: ALANINE AMINOTRANSFERASE 32 U/L (12-78); ALBUMIN/GLOBULIN RATIO 0.8 (1.1-1.5); ALKALINE PHOSPHATASE 68 IU/L (46-116); ASPARTATE AMINO TRANSFERASE 27 U/L (10-37)
[2022-08-12] MEDS ORDERED: ondansetron/PF 4mg/2ml inj IV PRN (05:35)
[2022-08-12] MEDS ORDERED: morphine 2 MG/ML inj. syringe IV PRN (05:35)
[2022-08-12] MEDS ORDERED: potassium Cl 40MEQ/1/2NS 520ml 520 ML IV PRN (05:35)
[2022-08-12] MEDS ORDERED: magnesium Cl slow-release 64mg tablet PO PRN (05:35)
[2022-08-12] MEDS ORDERED: magnesium 4gm in 100ml NS 100 ML IV PRN (05:35)
[2022-08-12] MEDS ORDERED: potassium Cl 20 mEq SR tablet PO PRN ×2 (05:35)
[2022-08-12] MEDS ORDERED: acetaminophen 325mg tablet PO PRN ×2 (05:35)
[2022-08-12] MEDS ORDERED: HYDROcodone/acetaminophen 5mg/325mg tablet PO PRN (05:35)
[2022-08-12] MEDS: albuterol 2.5 MG/3 ML nebule NEB SCH ×6 (06:59→23:10)
[2022-08-12] MEDS ORDERED: lisinopril 20mg tablet PO SCH (08:00)
[2022-08-12] MEDS ORDERED: aspirin 81mg tab.chew PO SCH (08:00)
[2022-08-12] MEDS ORDERED: carVEDilol 3.125mg tablet PO SCH (08:00)
--- NOTE | 2022-08-12 08:02 | NUR ---
SEAT JOINER CHAINSTITCH AT BEDSIDE AT THIS TIME.
[2022-08-12] MEDS: CefTRIAXone 2gm/D5W 50ml BAG 50 ML IV SCH (08:21)
[2022-08-12] MEDS: methylPREDNISolone sod succ 125mg/2ml vial IV SCH ×2 (08:23→20:04)
[2022-08-12] MEDS: pantoprazole 40mg Tablet.DR PO SCH (08:24)
[2022-08-12] MEDS: furosemide 40mg tablet PO SCH (08:24)
[2022-08-12] MEDS: atorvastatin 20mg tablet PO SCH (08:24)
[2022-08-12] MEDS: spironolactone 25 MG tablet PO SCH (08:24)
[2022-08-12] MEDS: heparin, porcine 5000 units/ml vial SQ SCH ×2 (08:24→20:05)
[2022-08-12] MEDS ORDERED: ASPI-1071 PO (14:44)
[2022-08-12] MEDS ORDERED: CARV6.253 PO (14:44)
[2022-08-12] MEDS ORDERED: CHOL400T PO (14:45)
[2022-08-12] MEDS ORDERED: LISI2.5T14 PO (14:46)
[2022-08-12] MEDS ORDERED: COLC0.6C3 PO (14:46)
[2022-08-12 16:04] VITALS: BP 92/50
[2022-08-12] MEDS ORDERED: albuterol 2.5 MG/3 ML nebule NEB PRN (17:55)
[2022-08-12] MEDS ORDERED: colchicine 0.6mg tablet PO PRN (17:55)
[2022-08-12 18:00] VITALS: BP 90/51
--- NOTE | 2022-08-12 18:43 | NUR ---
Problems reprioritized. Patient report given, questions answered & plan of care reviewed with Evelin STRONG, patient stable at transfer of care.
[2022-08-12] MEDS: carvedilol 6.25mg tablet PO SCH (20:00)
[2022-08-12 20:19] VITALS: BP 106/79
[2022-08-12] MEDS ORDERED: temazepam 15mg capsule PO PRN (21:00)
[2022-08-12 22:35] VITALS: BP 101/62
--- NOTE | 2022-08-13 | NUR ---
Pt. is awake lart oriented. ate 100% of meal and more. VS stable. 0600 Pt. began coughing, states is due to COPD but would like to get something to control the cough. Discussed with dayshift. to request cough med from Primary team..
[2022-08-13 02:30] VITALS: BP 90/62
[2022-08-13] MEDS: albuterol 2.5 MG/3 ML nebule NEB SCH ×6 (02:57→23:50)
[2022-08-13 06:05] LABS: BASOPHILS % (AUTO) 0.2 % (0-1); EOSINOPHILS % (AUTO) 0.1 % (0-6); HEMOGLOBIN 14.9 g/dl (14.0-17.9); LYMPHOCYTES # (AUTO) 1.2 X10'3 (1.1-4.8); LYMPHOCYTES % (AUTO) 6.3 % (21-51); MEAN CORPUSCULAR HEMOGLOBIN 32.2 PG (27.0-31.0); MEAN CORPUSCULAR HGB CONC 33.9 g/dL (33.0-36.5); MEAN CORPUSCULAR VOLUME 94.9 FL (78-98); MONOCYTES # (AUTO) 0.6 X10'3 (0-0.9); MONOCYTES % (AUTO) 3.3 % (2-12); NEUTROPHILS # (AUTO) 16.8 X10'3 (1.8-7.7); NEUTROPHILS % (AUTO) 90.1 % (42-75); PLATELET COUNT 178 X10'3 (140-440); RED BLOOD COUNT 4.63 X10'6 (4.70-6.10); RED CELL DISTRIBUTION WIDTH 13.5 % (11.5-14.5); WHITE BLOOD COUNT 18.7 X10'3 (4.5-11.0)
[2022-08-13 06:20] LABS: ALANINE AMINOTRANSFERASE 23 U/L (12-78); ALBUMIN 2.9 G/DL (3.4-5.0); ALBUMIN/GLOBULIN RATIO 0.7 (1.1-1.5); ALKALINE PHOSPHATASE 54 IU/L (46-116); ANION GAP 10 (8-16); ASPARTATE AMINO TRANSFERASE 14 U/L (10-37); BILIRUBIN,TOTAL 0.8 MG/DL (0.1-1.0); BLOOD UREA NITROGEN 41 MG/DL (7-18); BUN/CREATININE RATIO 29.1 (5.4-32.0); CHLORIDE 99 MMOL/L (99-107); CREATININE 1.41 MG/DL (0.60-1.10); GLUCOSE 146 MG/DL (70-104); POTASSIUM 4.9 MMOL/L (3.5-5.1); SODIUM 133 MMOL/L (135-145); TOTAL CARBON DIOXIDE 24.4 MMOL/L (24-32); TOTAL PROTEIN 7.2 G/DL (6.4-8.2); eGFR 51 ML/MIN
--- NOTE | 2022-08-13 06:25 | NUR ---
Patient in room PCU 3027. I have received report from Evelin STRONG and had the opportunity to ask questions and assume patient care.
[2022-08-13 07:23] VITALS: BP 115/68
[2022-08-13] MEDS: methylPREDNISolone sod succ 125mg/2ml vial IV SCH ×2 (09:05→19:51)
[2022-08-13] MEDS: heparin, porcine 5000 units/ml vial SQ SCH ×2 (09:05→19:51)
[2022-08-13] MEDS: pantoprazole 40mg Tablet.DR PO SCH (09:06)
[2022-08-13] MEDS: aspirin 81mg, enteric-coated 1 TAB TABLET.DR PO SCH (09:06)
[2022-08-13] MEDS: furosemide 40mg tablet PO SCH (09:07)
[2022-08-13] MEDS: lisinopril 2.5mg tablet PO SCH (09:07)
[2022-08-13] MEDS: spironolactone 25 MG tablet PO SCH (09:08)
[2022-08-13] MEDS: carvedilol 6.25mg tablet PO SCH ×2 (09:08→20:00)
[2022-08-13] MEDS: atorvastatin 20mg tablet PO SCH (09:08)
[2022-08-13] MEDS: CefTRIAXone 2gm/D5W 50ml BAG 50 ML IV SCH (09:08)
[2022-08-13] MEDS: benzonatate 100mg capsule PO PRN ×3 (09:09→22:09)
[2022-08-13 12:51] VITALS: BP 121/71
[2022-08-13] MEDS ORDERED: furosemide 40mg/4ml inj IV ONE (14:45)
[2022-08-13 15:49] VITALS: BP 111/61
[2022-08-13 18:00] VITALS: BP 91/41
--- NOTE | 2022-08-13 18:16 | NUR ---
Problems reprioritized. Patient report given, questions answered & plan of care reviewed with Evelin STRONG, patient stable at transfer of care.
[2022-08-13 22:00] VITALS: BP 111/54
--- NOTE | 2022-08-13 23:16 | NUR ---
Pt. is awake alert oriented in no distress SL intact.. Still coughing intermittently. spoke on phone with family members and friends. Ate extra helping of pm snacks. Voids BRP. Medicated for mild throat discomfort and Tessalon given for cough. Resting quietly tonight.
[2022-08-14 02:30] VITALS: BP 104/63
[2022-08-14] MEDS: albuterol 2.5 MG/3 ML nebule NEB SCH ×3 (03:41→11:33)
[2022-08-14 06:00] VITALS: BP 101/65
[2022-08-14 06:09] LABS: BASOPHILS % (AUTO) 0.2 % (0-1); EOSINOPHILS % (AUTO) 0 % (0-6); HEMATOCRIT 41.2 % (42.0-52.0); HEMOGLOBIN 14.2 g/dl (14.0-17.9); LYMPHOCYTES % (AUTO) 6.6 % (21-51); MEAN CORPUSCULAR HEMOGLOBIN 32.8 PG (27.0-31.0); MEAN CORPUSCULAR HGB CONC 34.5 g/dL (33.0-36.5); MEAN PLATELET VOLUME 8.1 FL (7.4-10.4); MONOCYTES # (AUTO) 0.7 X10'3 (0-0.9); MONOCYTES % (AUTO) 4.4 % (2-12); NEUTROPHILS # (AUTO) 13.6 X10'3 (1.8-7.7); NEUTROPHILS % (AUTO) 88.8 % (42-75); PLATELET COUNT 183 X10'3 (140-440); RED BLOOD COUNT 4.34 X10'6 (4.70-6.10); RED CELL DISTRIBUTION WIDTH 13.4 % (11.5-14.5); WHITE BLOOD COUNT 15.3 X10'3 (4.5-11.0)
[2022-08-14 06:37] LABS: ALANINE AMINOTRANSFERASE 25 U/L (12-78); ALBUMIN 2.8 G/DL (3.4-5.0); ALBUMIN/GLOBULIN RATIO 0.7 (1.1-1.5); ALKALINE PHOSPHATASE 54 IU/L (46-116); ANION GAP 8 (8-16); ASPARTATE AMINO TRANSFERASE 12 U/L (10-37); BILIRUBIN,TOTAL 0.5 MG/DL (0.1-1.0); BLOOD UREA NITROGEN 40 MG/DL (7-18); BUN/CREATININE RATIO 32.3 (5.4-32.0); CHLORIDE 102 MMOL/L (99-107); CREATININE 1.24 MG/DL (0.60-1.10); GLUCOSE 136 MG/DL (70-104); POTASSIUM 4.4 MMOL/L (3.5-5.1); SODIUM 135 MMOL/L (135-145); TOTAL CARBON DIOXIDE 24.9 MMOL/L (24-32); TOTAL PROTEIN 7.1 G/DL (6.4-8.2); eGFR 60 ML/MIN
[2022-08-14] MEDS ORDERED: furosemide 40mg/4ml inj IV SCH (08:00)
[2022-08-14 08:33] VITALS: BP 123/71
[2022-08-14] MEDS: CefTRIAXone 2gm/D5W 50ml BAG 50 ML IV SCH (08:36)
[2022-08-14] MEDS: methylPREDNISolone sod succ 125mg/2ml vial IV SCH (08:37)
[2022-08-14] MEDS: aspirin 81mg, enteric-coated 1 TAB TABLET.DR PO SCH (08:39)
[2022-08-14] MEDS: heparin, porcine 5000 units/ml vial SQ SCH (08:39)
[2022-08-14] MEDS: carvedilol 6.25mg tablet PO SCH (08:40)
[2022-08-14] MEDS: spironolactone 25 MG tablet PO SCH (08:40)
[2022-08-14] MEDS: pantoprazole 40mg Tablet.DR PO SCH (08:40)
[2022-08-14] MEDS: atorvastatin 20mg tablet PO SCH (08:40)
[2022-08-14] MEDS: lisinopril 2.5mg tablet PO SCH (08:40)
[2022-08-14] MEDS ORDERED: PRED20TA PO (10:42)
[2022-08-14] MEDS ORDERED: LEVO-65 PO (10:42)
[2022-08-14 11:00] VITALS: BP 109/68
--- NOTE | 2022-08-14 13:37 | NUR ---
pt stable for d/c Rev'd all d/c ppwk with patient and patient friend. Education provided on importance of follow up and all questions, comments and concerns answered at this time. All personal belongings were sent with patient. New RX sent to pharmacy. PIV was removed and pt tolerated well. Tele monitor removed and given to manager telemetry. Pt wheeled out in w/c by nursing staff to private vehicle.
== END 2022-08-14 11:46 | disposition home or self-care (01) | DRG 140 ==
LOC: ER 00:38 → ED HOLD 05:36 → PCU 3S 10:24
PROVIDERS: ADMIT Internal Medicine; ATTEND Family Medicine
PROC: 5A0935A Assistance with Respiratory Ventilation, Less than 24 Consecutive Hours, High Flow/Velocity Cannula (ICD-10-PCS; principal; 2022-08-12)
DX: J44.1 Chronic obstructive pulmonary disease with (acute) exacerbation (principal); J96.00 Acute respiratory failure, unspecified whether with hypoxia or hypercapnia; I50.23 Acute on chronic systolic (congestive) heart failure; F15.10 Other stimulant abuse, uncomplicated; I42.7 Cardiomyopathy due to drug and external agent; J44.0 Chronic obstructive pulmonary disease with (acute) lower respiratory infection; J20.9 Acute bronchitis, unspecified; Z86.711 Personal history of pulmonary embolism; Z71.51 Drug abuse counseling and surveillance of drug abuser
CPT/HCPCS: 36415; 71045; 80053; 83605; 83735; 83880; 84484; 85025; 87040; 87081; 93005; 93306; 94640; 94760; 96365; 96366; 96375; 99291; A4620; G0378; J0696; J1644; J1940; J2930; J3475; J7030; J7040

== ENCOUNTER 2022-11-23 11:56 | Emergency (ER) | payer MEDICAID ==
[~2022-11-23] VITALS: Ht 172.7 cm; Wt 115.9 kg
[~2022-11-23 11:56] MED LIST changes: +ASPI-1071 PO; -ASPI-1265 PO; -CARV3.12 PO; +CARV6.253 PO; +CHOL400T PO; +COLC0.6C3 PO; +LISI2.5T14 PO; -LISI20TA28 PO; -NITR0.4T51 SL; -OMEP20CA15 PO
[2022-11-23 12:13] VITALS: BP 120/78
[2022-11-23 12:23] LABS: BASOPHILS # (AUTO) 0.1 X10'3 (0-0.2); BASOPHILS % (AUTO) 0.6 % (0-1); EOSINOPHILS # (AUTO) 0.7 X10'3 (0-0.9); EOSINOPHILS % (AUTO) 6.9 % (0-6); HEMATOCRIT 46.6 % (42.0-52.0); LYMPHOCYTES # (AUTO) 1.8 X10'3 (1.1-4.8); LYMPHOCYTES % (AUTO) 19.4 % (21-51); MEAN CORPUSCULAR HGB CONC 34.4 g/dL (33.0-36.5); MEAN CORPUSCULAR VOLUME 93.1 FL (78-98); MEAN PLATELET VOLUME 8.2 FL (7.4-10.4); NEUTROPHILS # (AUTO) 5.9 X10'3 (1.8-7.7); NEUTROPHILS % (AUTO) 62.1 % (42-75); PLATELET COUNT 201 X10'3 (140-440); RED CELL DISTRIBUTION WIDTH 13.8 % (11.5-14.5); WHITE BLOOD COUNT 9.5 X10'3 (4.5-11.0)
[2022-11-23 12:35] LABS: ALANINE AMINOTRANSFERASE 24 U/L (12-78); ALBUMIN 3.6 G/DL (3.4-5.0); ALBUMIN/GLOBULIN RATIO 0.9 (1.1-1.5); ALKALINE PHOSPHATASE 63 IU/L (46-116); ANION GAP 9 (8-16); ASPARTATE AMINO TRANSFERASE 20 U/L (10-37); BILIRUBIN,TOTAL 1.2 MG/DL (0.1-1.0); BLOOD UREA NITROGEN 23 MG/DL (7-18); BUN/CREATININE RATIO 19.8 (10.0-20.0); CALCIUM 9.2 MG/DL (8.5-10.1); CHLORIDE 102 MMOL/L (99-107); CREATININE 1.16 MG/DL (0.60-1.10); GLUCOSE 124 MG/DL (70-104); POTASSIUM 4.6 MMOL/L (3.5-5.1); SODIUM 136 MMOL/L (135-145); TOTAL CARBON DIOXIDE 24.6 MMOL/L (24-32); TOTAL PROTEIN 7.8 G/DL (6.4-8.2); eGFR 64 ML/MIN
[2022-11-23 12:43] LABS: MAGNESIUM 2.1 MG/DL (1.5-2.4)
[2022-11-25] MEDS ORDERED: PRED20TA PO (21:47)
[2022-11-25] MEDS ORDERED: AZIT-83 PO (21:47)
[2022-11-25] MEDS ORDERED: ALBU8HFA PO (22:00)
== END 2022-11-24 07:07 | disposition left against medical advice (07) ==
LOC: ER 11:57
DX: R06.02 Shortness of breath (principal); Z53.21 Procedure and treatment not carried out due to patient leaving prior to being seen by health care provider
CPT/HCPCS: 36415; 71045; 80053; 83735; 83880; 84484; 85025; 93005; 99281; 99285

== ENCOUNTER 2022-11-25 18:02 | Emergency (ER) | payer MEDICAID ==
[~2022-11-25] VITALS: Ht 172.7 cm; Wt 110.9 kg
[2022-11-25 18:37] LABS: BASOPHILS % (AUTO) 0.6 % (0-1); EOSINOPHILS # (AUTO) 0.5 X10'3 (0-0.9); EOSINOPHILS % (AUTO) 7.2 % (0-6); HEMATOCRIT 47.1 % (42.0-52.0); HEMOGLOBIN 16.3 g/dl (14.0-17.9); LYMPHOCYTES # (AUTO) 1.5 X10'3 (1.1-4.8); LYMPHOCYTES % (AUTO) 22.8 % (21-51); MEAN CORPUSCULAR HEMOGLOBIN 32.5 PG (27.0-31.0); MEAN CORPUSCULAR HGB CONC 34.6 g/dL (33.0-36.5); MEAN CORPUSCULAR VOLUME 93.7 FL (78-98); MONOCYTES # (AUTO) 0.7 X10'3 (0-0.9); MONOCYTES % (AUTO) 10.4 % (2-12); NEUTROPHILS # (AUTO) 3.9 X10'3 (1.8-7.7); PLATELET COUNT 181 X10'3 (140-440); RED BLOOD COUNT 5.03 X10'6 (4.70-6.10); RED CELL DISTRIBUTION WIDTH 13.8 % (11.5-14.5); WHITE BLOOD COUNT 6.6 X10'3 (4.5-11.0)
[2022-11-25 18:50] LABS: ALANINE AMINOTRANSFERASE 24 U/L (12-78); ALBUMIN 3.4 G/DL (3.4-5.0); ALBUMIN/GLOBULIN RATIO 0.7 (1.1-1.5); ALKALINE PHOSPHATASE 65 IU/L (46-116); ANION GAP 8 (8-16); ASPARTATE AMINO TRANSFERASE 23 U/L (10-37); BILIRUBIN,TOTAL 1.7 MG/DL (0.1-1.0); BLOOD UREA NITROGEN 16 MG/DL (7-18); BUN/CREATININE RATIO 16.2 (10.0-20.0); CHLORIDE 103 MMOL/L (99-107); CREATININE 0.99 MG/DL (0.60-1.10); GLUCOSE 105 MG/DL (70-104); POTASSIUM 4.1 MMOL/L (3.5-5.1); SODIUM 137 MMOL/L (135-145); TOTAL CARBON DIOXIDE 25.8 MMOL/L (24-32); TOTAL PROTEIN 8.1 G/DL (6.4-8.2); eGFR 77 ML/MIN
[2022-11-25] MEDS ORDERED: methylPREDNISolone sod succ 125mg/2ml vial IV ONE (19:05)
[2022-11-25] MEDS ORDERED: albuterol 2.5 MG/3 ML nebule CONTNEB PRN (19:05)
[2022-11-25] MEDS ORDERED: PRED20TA PO (21:47)
[2022-11-25] MEDS ORDERED: AZIT-83 PO (21:47)
[2022-11-25] MEDS ORDERED: ALBU8HFA PO (22:00)
[2022-11-25 22:08] VITALS: BP 128/85
== END 2022-11-25 22:11 | disposition home or self-care (01) ==
LOC: ER 18:03
DX: J44.1 Chronic obstructive pulmonary disease with (acute) exacerbation (principal); I50.9 Heart failure, unspecified; I25.2 Old myocardial infarction; F15.90 Other stimulant use, unspecified, uncomplicated; Z72.89 Other problems related to lifestyle; Z95.5 Presence of coronary angioplasty implant and graft; Z79.82 Long term (current) use of aspirin; Z79.899 Other long term (current) drug therapy
CPT/HCPCS: 36415; 71046; 80053; 83735; 83880; 84484; 85025; 93005; 94640; 94644; 96374; 99285; J2930; A7015

== ENCOUNTER 2022-12-16 07:14 | Inpatient (IN) | payer MEDICAID ==
[~2022-12-16] VITALS: Ht 172.7 cm; Wt 129.6 kg
[~2022-12-16 07:14] MED LIST changes: +ALBU8HFA PO; +AZIT-83 PO
[2022-12-16 07:38] LABS: BASOPHILS # (AUTO) 0.1 X10'3 (0-0.2); EOSINOPHILS # (AUTO) 1.4 X10'3 (0-0.9); EOSINOPHILS % (AUTO) 20.7 % (0-6); HEMATOCRIT 43.4 % (42.0-52.0); HEMOGLOBIN 15.1 g/dl (14.0-17.9); LYMPHOCYTES # (AUTO) 1.6 X10'3 (1.1-4.8); LYMPHOCYTES % (AUTO) 23.1 % (21-51); MEAN CORPUSCULAR HEMOGLOBIN 32.5 PG (27.0-31.0); MEAN CORPUSCULAR HGB CONC 34.7 g/dL (33.0-36.5); MEAN CORPUSCULAR VOLUME 93.7 FL (78-98); MONOCYTES # (AUTO) 0.7 X10'3 (0-0.9); MONOCYTES % (AUTO) 11.1 % (2-12); NEUTROPHILS % (AUTO) 44.1 % (42-75); PLATELET COUNT 142 X10'3 (140-440); RED BLOOD COUNT 4.64 X10'6 (4.70-6.10); RED CELL DISTRIBUTION WIDTH 14.2 % (11.5-14.5); WHITE BLOOD COUNT 6.7 X10'3 (4.5-11.0)
[2022-12-16 07:48] LABS: ALANINE AMINOTRANSFERASE 28 U/L (12-78); ALBUMIN 3.4 G/DL (3.4-5.0); ALBUMIN/GLOBULIN RATIO 0.9 (1.1-1.5); ALKALINE PHOSPHATASE 51 IU/L (46-116); ANION GAP 11 (8-16); ASPARTATE AMINO TRANSFERASE 26 U/L (10-37); BILIRUBIN,TOTAL 1.2 MG/DL (0.1-1.0); BLOOD UREA NITROGEN 22 MG/DL (7-18); BUN/CREATININE RATIO 19.3 (10.0-20.0); CALCIUM 8.8 MG/DL (8.5-10.1); CHLORIDE 104 MMOL/L (99-107); CREATININE 1.14 MG/DL (0.60-1.10); GLUCOSE 106 MG/DL (70-104); SODIUM 139 MMOL/L (135-145); TOTAL CARBON DIOXIDE 24.2 MMOL/L (24-32); TOTAL PROTEIN 7.1 G/DL (6.4-8.2); eGFR 66 ML/MIN
[2022-12-16] MEDS ORDERED: ipratropium/albuterol 3ml nebule NEB ONE (08:05)
--- NOTE | 2022-12-16 08:10 | NUR ---
RN PAGED RT AND REQ RT TX.
[2022-12-16 08:27] LABS: PLATELET ESTIMATE NORMAL; TOTAL CELLS COUNTED 100
[2022-12-16] MEDS ORDERED: furosemide 10 MG/1 ML 10ml inj IV ONE (10:10)
[2022-12-16] MEDS ORDERED: benzonatate 100mg capsule PO ONE (10:40)
[2022-12-16] MEDS ORDERED: potassium Cl 20 mEq SR tablet PO PRN ×2 (11:35)
[2022-12-16] MEDS ORDERED: magnesium Cl slow-release 64mg tablet PO PRN (11:35)
[2022-12-16] MEDS ORDERED: ondansetron/PF 4mg/2ml inj IV PRN (11:35)
[2022-12-16] MEDS ORDERED: acetaminophen 325mg tablet PO PRN (11:35)
[2022-12-16] MEDS ORDERED: potassium Cl 40MEQ/1/2NS 520ml 520 ML IV PRN (11:35)
[2022-12-16] MEDS ORDERED: magnesium 4gm in 100ml NS 100 ML IV PRN (11:35)
[2022-12-16] MEDS ORDERED: magnesium 2GM in 50ml NS 50 ML IV PRN (11:35)
[2022-12-16] MEDS ORDERED: magnesium hydroxide 30ml (MOM) UD suspension PO PRN (11:35)
[2022-12-16] MEDS ORDERED: mag hydrox/Alum hydrox/simeth 30ml oral suspension PO PRN (11:35)
--- NOTE | 2022-12-16 11:37 | NUR ---
PATIENT UP TO BATHROOM AT THIS TIME.
--- NOTE | 2022-12-16 12:20 | NUR ---
LIGIA WILKS TRAY FROM DIETARY.
[2022-12-16] MEDS ORDERED: ALBU18HF2 PO (12:38)
[2022-12-16] MEDS ORDERED: SPIR25TA5 PO (12:38)
[2022-12-16] MEDS ORDERED: NITR0.4T51 SL (12:39)
--- NOTE | 2022-12-16 13:53 | NUR ---
PT C/O PAIN AND COUGH. PT REQ RT TX AND PAIN MED. RN PAGED DR BENTLEY WITH REQ.
--- NOTE | 2022-12-16 13:54 | NUR ---
RN ATTEMPTED TO CALL REPORT AND REC RN IS AT LUNCH AND WILL CALL BACK.
--- NOTE | 2022-12-16 14:45 | NUR ---
Received report from Marbella GELLER RN.
[2022-12-16 14:50] VITALS: BP 123/81
--- NOTE | 2022-12-16 14:50 | NUR ---
Patient arrived to unit via gurney and ambulated into bed. Changed into gown and tucked into bed. Complaining of a slight head ache.
--- NOTE | 2022-12-16 18:00 | NUR ---
Patient in room PCU 3027. I have received report from Josee AARON and had the opportunity to ask questions and assume patient care.
--- NOTE | 2022-12-16 18:13 | NUR ---
Patient in room PCU 3027. I have received report from Grace STRONG and had the opportunity to ask questions and assume patient care.
[2022-12-16 19:30] VITALS: BP 159/100
[2022-12-16] MEDS: K and/or MAG REPLACEMENT MC SCH (20:00)
[2022-12-16] MEDS: docusate sod 100mg capsule PO SCH (20:00)
[2022-12-16] MEDS: furosemide 40mg/4ml inj IV SCH (20:42)
--- NOTE | 2022-12-16 22:00 | NUR ---
Called Dr. Bales for cough medicine and he ordered Tessalon pearls and robitussin 10 ml Q6H
[2022-12-16] MEDS: guaiFENesin 200mg/20mg codeine phos 10ml UD oral syrup PO PRN (22:52)
[2022-12-16 23:30] VITALS: BP 133/92
[2022-12-17] MEDS: benzonatate 100mg capsule PO PRN ×2 (01:16→16:36)
[2022-12-17 03:00] VITALS: BP 109/79
[2022-12-17 06:00] VITALS: BP 126/76
--- NOTE | 2022-12-17 06:40 | NUR ---
Problems reprioritized. Patient report given, questions answered & plan of care reviewed with Isacc STRONG.
[2022-12-17 07:45] LABS: BASOPHILS # (AUTO) 0.1 X10'3 (0-0.2); EOSINOPHILS # (AUTO) 1.7 X10'3 (0-0.9); HEMATOCRIT 43.9 % (42.0-52.0); LYMPHOCYTES # (AUTO) 1.7 X10'3 (1.1-4.8); LYMPHOCYTES % (AUTO) 24.9 % (21-51); MEAN CORPUSCULAR HEMOGLOBIN 32.2 PG (27.0-31.0); MEAN CORPUSCULAR HGB CONC 34.1 g/dL (33.0-36.5); MEAN CORPUSCULAR VOLUME 94.4 FL (78-98); MEAN PLATELET VOLUME 8.3 FL (7.4-10.4); MONOCYTES # (AUTO) 0.8 X10'3 (0-0.9); MONOCYTES % (AUTO) 11.1 % (2-12); NEUTROPHILS # (AUTO) 2.6 X10'3 (1.8-7.7); PLATELET COUNT 158 X10'3 (140-440); RED BLOOD COUNT 4.65 X10'6 (4.70-6.10); RED CELL DISTRIBUTION WIDTH 14.3 % (11.5-14.5); WHITE BLOOD COUNT 6.8 X10'3 (4.5-11.0)
[2022-12-17] MEDS ORDERED: ipratropium/albuterol 3ml nebule ONE (07:48)
[2022-12-17] MEDS: K and/or MAG REPLACEMENT MC SCH ×2 (08:00→20:00)
[2022-12-17 08:09] LABS: ALANINE AMINOTRANSFERASE 23 U/L (12-78); ALBUMIN 3.3 G/DL (3.4-5.0); ALBUMIN/GLOBULIN RATIO 0.9 (1.1-1.5); ALKALINE PHOSPHATASE 50 IU/L (46-116); ANION GAP 11 (8-16); ASPARTATE AMINO TRANSFERASE 14 U/L (10-37); BILIRUBIN,TOTAL 0.9 MG/DL (0.1-1.0); BLOOD UREA NITROGEN 21 MG/DL (7-18); BUN/CREATININE RATIO 21.6 (10.0-20.0); CALCIUM 8.9 MG/DL (8.5-10.1); CHLORIDE 103 MMOL/L (99-107); CREATININE 0.97 MG/DL (0.60-1.10); GLUCOSE 105 MG/DL (70-104); MAGNESIUM 2.2 MG/DL (1.5-2.4); SODIUM 142 MMOL/L (135-145); TOTAL CARBON DIOXIDE 27.8 MMOL/L (24-32); eGFR 79 ML/MIN
[2022-12-17] MEDS ORDERED: nitroGLYCERIN 0.4mg SUBLingual tab SL PRN (08:25)
[2022-12-17] MEDS: docusate sod 100mg capsule PO SCH ×2 (08:46→20:00)
[2022-12-17] MEDS: furosemide 40mg/4ml inj IV SCH ×2 (08:46→21:24)
[2022-12-17] MEDS: enoxaparin 40mg/0.4ml syringe SUBCUT SCH (08:47)
[2022-12-17] MEDS: ipratropium/albuterol 3ml nebule NEB PRN ×3 (13:17→22:22)
[2022-12-17 14:15] VITALS: BP 124/82
[2022-12-17] MEDS: guaiFENesin 200mg/20mg codeine phos 10ml UD oral syrup PO PRN ×2 (16:36→21:24)
--- NOTE | 2022-12-17 18:00 | NUR ---
Patient in room PCU 3027. I have received report from AISSATOU STRONG and had the opportunity to ask questions and assume patient care.
--- NOTE | 2022-12-17 18:29 | NUR ---
3027b-sacha king- May I order albuterol rescue inhaler in addition to breathing tx? possibly solumedrol also? just called for breathing tx, patient wheezy, tripoding, got abbi rodriguez and erick one hr ago. christelle, robinson [phone]
[2022-12-17 19:38] VITALS: BP 110/60
[2022-12-17] MEDS: carvedilol 6.25mg tablet PO SCH (21:25)
[2022-12-17 22:00] VITALS: BP 140/82
--- NOTE | 2022-12-18 01:09 | NUR ---
Was in another patient room when Mr. Floyd felt very anxious, jumped out of bed and was extremely shallow in breathing-went to go use restroom-I was on phone with respiratory, and about to page Hospitalist for new orders. supervisor soakers Kayla was in same room with other patient, attempted to assist Mr. Floyd with commode, as other patient needed restroom simultaneously. Decided patient was in respiratory distress, paged rapid, got patient in wheelchair, vital signs oxygen saturation 86% on room air, bp 149/102 (126), hr 148. Kerry ordered 2 mg iv, no additional lasix. put patient on 4 lN/C, O2 now 96%, bp 129/92 (107), hr 119, RR 20.
[2022-12-18] MEDS ORDERED: morphine 4 MG/ML inj SYRINge IV ONE (01:10)
[2022-12-18] MEDS ORDERED: morphine 2 MG/ML inj. syringe IV ONE (01:50)
[2022-12-18] MEDS ORDERED: furosemide 20 MG/2 ML vial IV ONE (01:50)
[2022-12-18 02:00] VITALS: BP 129/92
--- NOTE | 2022-12-18 02:44 | NUR ---
patient resting, see notes regarding rapid response. VS stable at this time.
[2022-12-18] MEDS: ipratropium/albuterol 3ml nebule NEB PRN ×6 (03:28→23:33)
[2022-12-18] MEDS ORDERED: methylPREDNISolone sod succ 125mg/2ml vial IV ONE ×2 (03:48→03:50)
--- NOTE | 2022-12-18 04:00 | NUR ---
patient tolerating bipap successfully. fi02 30%
--- NOTE | 2022-12-18 04:00 | NUR ---
2nd rapid response called for patient in respiratory distress-oxygen saturation low 80's on 6 l/nc, patient not exchanging airflow, nonrebreather 15 liters 100%. stat cxr results pending. orders for abg/solumedrol per mohamud. Addendum: 12/18/22 at 0408 by Anita Ochoa RN see additional orders
[2022-12-18 04:01] LABS: ABG BASE EXCESS -1.9 mmol/L (-2.0-2.0); ABG HCO3 28.2 mmol/L (22.0-26.0); ABG OXYGEN SATURATION 99.3 % (94-97); ABG PCO2 (T) 69.4 mmHg (35.0-48.0); ABG PO2 (T) 291.8 mmHg (75.0-100.0); ALLEN'S TEST POSITIVE; FCOHb 0.3 % (0.0-3.9); FMetHb 0.4 % (0.0-1.5); FO2Hb 98.6 % (94-97); PATIENT TEMPERATURE 36.8; TOTAL HEMOGLOBIN 17.8 G/dl (14.0-17.9)
--- NOTE | 2022-12-18 04:09 | NUR ---
Back to see pt at 0355 for severe SOB, desat; pt now w/NRB on, sat 98%, audible wheezes, BP 151/111, HR 133; pt still sitting in chair, able to answer questions; update given to Dr. Payne by sales operations associate, Anita, and orders received; CXR done, ABG results called to Dr. Payne; received orders for labs and bipap.
[2022-12-18 04:29] LABS: BASOPHILS # (AUTO) 0.1 X10'3 (0-0.2); BASOPHILS % (AUTO) 0.9 % (0-1); EOSINOPHILS # (AUTO) 1.7 X10'3 (0-0.9); EOSINOPHILS % (AUTO) 19.6 % (0-6); HEMATOCRIT 49.6 % (42.0-52.0); HEMOGLOBIN 16.9 g/dl (14.0-17.9); LYMPHOCYTES # (AUTO) 1.5 X10'3 (1.1-4.8); LYMPHOCYTES % (AUTO) 17.9 % (21-51); MEAN CORPUSCULAR HEMOGLOBIN 32.2 PG (27.0-31.0); MEAN CORPUSCULAR VOLUME 94.6 FL (78-98); MEAN PLATELET VOLUME 8.1 FL (7.4-10.4); MONOCYTES # (AUTO) 0.8 X10'3 (0-0.9); MONOCYTES % (AUTO) 8.9 % (2-12); NEUTROPHILS # (AUTO) 4.6 X10'3 (1.8-7.7); NEUTROPHILS % (AUTO) 52.7 % (42-75); PLATELET COUNT 192 X10'3 (140-440); RED BLOOD COUNT 5.25 X10'6 (4.70-6.10); WHITE BLOOD COUNT 8.6 X10'3 (4.5-11.0)
[2022-12-18 04:41] LABS: ALANINE AMINOTRANSFERASE 29 U/L (12-78); ALBUMIN 3.9 G/DL (3.4-5.0); ALBUMIN/GLOBULIN RATIO 0.9 (1.1-1.5); ALKALINE PHOSPHATASE 61 IU/L (46-116); ANION GAP 10 (8-16); ASPARTATE AMINO TRANSFERASE 20 U/L (10-37); BILIRUBIN,TOTAL 1.1 MG/DL (0.1-1.0); BLOOD UREA NITROGEN 25 MG/DL (7-18); BUN/CREATININE RATIO 16.7 (10.0-20.0); CALCIUM 9.3 MG/DL (8.5-10.1); CHLORIDE 100 MMOL/L (99-107); GLUCOSE 184 MG/DL (70-104); MAGNESIUM 2.1 MG/DL (1.5-2.4); POTASSIUM 4.5 MMOL/L (3.5-5.1); SODIUM 137 MMOL/L (135-145); TOTAL PROTEIN 8.2 G/DL (6.4-8.2); eGFR 48 ML/MIN
[2022-12-18 05:51] LABS: ABG BASE EXCESS -1.3 mmol/L (-2.0-2.0); ABG HCO3 24.5 mmol/L (22.0-26.0); ABG OXYGEN SATURATION 94.8 % (94-97); ABG PO2 (T) 76.2 mmHg (75.0-100.0); ALLEN'S TEST POSITIVE; FCOHb 0.4 % (0.0-3.9); FMetHb 0.3 % (0.0-1.5); FO2Hb 94.1 % (94-97); PATIENT TEMPERATURE 36.8; RESPIRATORY RATE 12 b/min; TOTAL HEMOGLOBIN 17.3 G/dl (14.0-17.9)
--- NOTE | 2022-12-18 07:03 | NUR ---
Patient in room PCU 3022S. I have received report from Anita STRONG and had the opportunity to ask questions and assume patient care. Pt is sitting up in bed side chair on BiPAP, fio2 @ 30%, O2 @94%. Pt does no want to lay down, or sit high fowlers in the bed. Pt states he is comfortable in chair, and declines any c/o pain at this time. BLL, call erika pierce reach, frequently used items in reach, frequent roudning, artist's model socks on. Will continue to monitor.
[2022-12-18 07:18] VITALS: BP 127/89
[2022-12-18] MEDS: spironolactone 25 MG tablet PO SCH (08:00)
[2022-12-18] MEDS: docusate sod 100mg capsule PO SCH ×2 (08:00→20:00)
[2022-12-18] MEDS: K and/or MAG REPLACEMENT MC SCH ×2 (08:00→20:00)
[2022-12-18] MEDS: carvedilol 6.25mg tablet PO SCH ×2 (08:00→20:38)
[2022-12-18] MEDS: aspirin 81mg, enteric-coated 1 TAB TABLET.DR PO SCH (08:00)
[2022-12-18] MEDS: enoxaparin 40mg/0.4ml syringe SUBCUT SCH (08:00)
[2022-12-18] MEDS: lisinopril 2.5mg tablet PO SCH (08:00)
[2022-12-18] MEDS: furosemide 40mg/4ml inj IV SCH ×2 (09:40→20:38)
[2022-12-18] MEDS: predniSONE 20 mg tablet PO SCH (09:42)
[2022-12-18 11:11] VITALS: BP 123/79
[2022-12-18 15:00] VITALS: BP 109/70
--- NOTE | 2022-12-18 17:39 | NUR ---
PAGER ID: [phone] MESSAGE: Teofilo Floyd 3023V- Pt c/o muscle spasms in legs. May this Pt get A muscle relaxer & or pain meds? -Ruthie BRADSHAW [phone] Addendum: 12/18/22 at 1752 by Ruthie Aldana RN NNO given at this time. Will re-page
--- NOTE | 2022-12-18 17:59 | NUR ---
PAGER ID: [phone] MESSAGE: Teofilo lFoyd [id number] B- Pt only has TYLENOL prn for fever; no pain meds available to give. Pt c/o muscle spasms. -Ruthie EXT [phone]
[2022-12-18 18:00] VITALS: BP 151/77
--- NOTE | 2022-12-18 18:34 | NUR ---
Patient in room PCU 3027. I have received report from WALI STRONG and had the opportunity to ask questions and assume patient care.
--- NOTE | 2022-12-18 18:44 | NUR ---
Problems reprioritized. Patient report given, questions answered & plan of care reviewed with Anita STRONG.
[2022-12-18] MEDS: cyclobenzaprine 10mg tablet PO PRN (20:38)
[2022-12-18] MEDS: benzonatate 100mg capsule PO PRN (20:38)
[2022-12-18 22:00] VITALS: BP 108/72
[2022-12-19] MEDS: ipratropium/albuterol 3ml nebule NEB PRN (05:14)
--- NOTE | 2022-12-19 06:20 | NUR ---
Problems reprioritized. Patient report given, questions answered & plan of care reviewed with WALI STRONG.
--- NOTE | 2022-12-19 06:35 | NUR ---
Problems reprioritized. Patient report given, questions answered & plan of care reviewed with WALI STRONG.
--- NOTE | 2022-12-19 06:53 | NUR ---
Patient in room U 8713G. I have received report from Anita STRONG and had the opportunity to ask questions and assume patient care. Pt is sitting in bed side recliner and resting comfortably, recliner locked. No s/s of pain at this time. Pt on RA, no s/s of distress. BLL, call light within reach, frequently used items in reach, frequent rounding, paste mixing supervisor socks on. Will continue to monitor.
[2022-12-19 07:00] VITALS: BP 114/71
[2022-12-19 07:10] LABS: ALANINE AMINOTRANSFERASE 26 U/L (12-78); ALBUMIN 3.6 G/DL (3.4-5.0); ALBUMIN/GLOBULIN RATIO 0.9 (1.1-1.5); ALKALINE PHOSPHATASE 54 IU/L (46-116); ANION GAP 11 (8-16); ASPARTATE AMINO TRANSFERASE 15 U/L (10-37); BILIRUBIN,TOTAL 1.1 MG/DL (0.1-1.0); BLOOD UREA NITROGEN 34 MG/DL (7-18); BUN/CREATININE RATIO 27.6 (10.0-20.0); CALCIUM 9.3 MG/DL (8.5-10.1); CHLORIDE 97 MMOL/L (99-107); CREATININE 1.23 MG/DL (0.60-1.10); GLUCOSE 113 MG/DL (70-104); MAGNESIUM 2.2 MG/DL (1.5-2.4); POTASSIUM 4.4 MMOL/L (3.5-5.1); SODIUM 136 MMOL/L (135-145); TOTAL CARBON DIOXIDE 28.1 MMOL/L (24-32); TOTAL PROTEIN 7.7 G/DL (6.4-8.2); eGFR 60 ML/MIN
[2022-12-19 07:17] LABS: BASOPHILS % (AUTO) 0.2 % (0-1); EOSINOPHILS % (AUTO) 0 % (0-6); HEMATOCRIT 46.6 % (42.0-52.0); HEMOGLOBIN 15.9 g/dl (14.0-17.9); LYMPHOCYTES # (AUTO) 1.4 X10'3 (1.1-4.8); LYMPHOCYTES % (AUTO) 9.4 % (21-51); MEAN CORPUSCULAR HEMOGLOBIN 32.1 PG (27.0-31.0); MEAN CORPUSCULAR HGB CONC 34.1 g/dL (33.0-36.5); MEAN CORPUSCULAR VOLUME 94.2 FL (78-98); MEAN PLATELET VOLUME 8.7 FL (7.4-10.4); MONOCYTES # (AUTO) 1.3 X10'3 (0-0.9); MONOCYTES % (AUTO) 8.8 % (2-12); NEUTROPHILS % (AUTO) 81.6 % (42-75); PLATELET COUNT 214 X10'3 (140-440); RED BLOOD COUNT 4.95 X10'6 (4.70-6.10); RED CELL DISTRIBUTION WIDTH 14.1 % (11.5-14.5); WHITE BLOOD COUNT 14.7 X10'3 (4.5-11.0)
[2022-12-19] MEDS: K and/or MAG REPLACEMENT MC SCH ×2 (08:00→19:14)
[2022-12-19] MEDS: docusate sod 100mg capsule PO SCH ×3 (08:00→19:11)
[2022-12-19] MEDS: furosemide 40mg/4ml inj IV SCH (08:31)
[2022-12-19] MEDS: spironolactone 25 MG tablet PO SCH (08:31)
[2022-12-19] MEDS: predniSONE 20 mg tablet PO SCH (08:31)
[2022-12-19] MEDS: carvedilol 6.25mg tablet PO SCH ×2 (08:31→19:13)
[2022-12-19] MEDS: aspirin 81mg, enteric-coated 1 TAB TABLET.DR PO SCH (08:32)
[2022-12-19] MEDS: lisinopril 2.5mg tablet PO SCH (08:32)
[2022-12-19] MEDS: enoxaparin 40mg/0.4ml syringe SUBCUT SCH (08:33)
[2022-12-19 11:00] VITALS: BP 113/72
[2022-12-19] MEDS: cyclobenzaprine 10mg tablet PO PRN (11:37)
[2022-12-19] MEDS: benzonatate 100mg capsule PO PRN (11:37)
[2022-12-19 15:00] VITALS: BP 106/64
[2022-12-19 15:37] VITALS: BP 91/64
[2022-12-19 18:00] VITALS: BP 99/70
--- NOTE | 2022-12-19 18:36 | NUR ---
Problems reprioritized. Patient report given, questions answered & plan of care reviewed with Alysa RN.
[2022-12-19 22:00] VITALS: BP 110/72
--- NOTE | 2022-12-19 22:00 | NUR ---
Pt. is awake alert oriented in good spirits maternal parent at bedside. No c/o pain or discomfort. BP 99/63 too low for Correg po. Pt.did not want Colace states bowels movements are just fine. Pt. is up in chair tolerating sitting position well states breathes better in upright position. BIPAP at bedside pt. states does not use. Plan for home soon when medically cleared.
--- NOTE | 2022-12-19 22:00 | NUR ---
Pt. is awake alert oriented in good spirits maternal parent at bedside. No c/o pain or discomfort. BP 99/63 too low for Correg po. Pt.did not want Colace states moved bowels just time. Pt. is up in chair tolerating position well states breathes better in upright position. BIPAP at bedside pt. states does not use. Plan for dome soon.
[2022-12-20 02:00] VITALS: BP 115/65
[2022-12-20] MEDS: benzonatate 100mg capsule PO PRN (03:48)
[2022-12-20 07:00] VITALS: BP 110/74
[2022-12-20 07:44] LABS: BASOPHILS % (AUTO) 0.4 % (0-1); EOSINOPHILS # (AUTO) 0.4 X10'3 (0-0.9); EOSINOPHILS % (AUTO) 4.2 % (0-6); HEMATOCRIT 48.4 % (42.0-52.0); HEMOGLOBIN 16.7 g/dl (14.0-17.9); LYMPHOCYTES # (AUTO) 2.8 X10'3 (1.1-4.8); LYMPHOCYTES % (AUTO) 29.9 % (21-51); MEAN CORPUSCULAR HEMOGLOBIN 32.6 PG (27.0-31.0); MEAN CORPUSCULAR HGB CONC 34.5 g/dL (33.0-36.5); MEAN CORPUSCULAR VOLUME 94.5 FL (78-98); MEAN PLATELET VOLUME 8.2 FL (7.4-10.4); MONOCYTES # (AUTO) 1.1 X10'3 (0-0.9); NEUTROPHILS # (AUTO) 5.1 X10'3 (1.8-7.7); NEUTROPHILS % (AUTO) 53.5 % (42-75); PLATELET COUNT 211 X10'3 (140-440); RED BLOOD COUNT 5.12 X10'6 (4.70-6.10); RED CELL DISTRIBUTION WIDTH 14.4 % (11.5-14.5); WHITE BLOOD COUNT 9.5 X10'3 (4.5-11.0)
[2022-12-20] MEDS: K and/or MAG REPLACEMENT MC SCH (08:00)
[2022-12-20] MEDS ORDERED: furosemide 40mg/4ml inj IV SCH (08:00)
[2022-12-20] MEDS: predniSONE 20 mg tablet PO SCH (08:10)
[2022-12-20] MEDS: aspirin 81mg, enteric-coated 1 TAB TABLET.DR PO SCH (08:10)
[2022-12-20 08:11] VITALS: BP_SYST 110
[2022-12-20] MEDS: carvedilol 6.25mg tablet PO SCH (08:11)
[2022-12-20] MEDS: lisinopril 2.5mg tablet PO SCH (08:11)
[2022-12-20] MEDS: spironolactone 25 MG tablet PO SCH (08:11)
[2022-12-20] MEDS: enoxaparin 40mg/0.4ml syringe SUBCUT SCH (08:12)
[2022-12-20 08:29] LABS: ALANINE AMINOTRANSFERASE 25 U/L (12-78); ALBUMIN 3.4 G/DL (3.4-5.0); ALBUMIN/GLOBULIN RATIO 0.8 (1.1-1.5); ALKALINE PHOSPHATASE 51 IU/L (46-116); ANION GAP 9 (8-16); ASPARTATE AMINO TRANSFERASE 24 U/L (10-37); BLOOD UREA NITROGEN 31 MG/DL (7-18); BUN/CREATININE RATIO 29.2 (10.0-20.0); CALCIUM 9.4 MG/DL (8.5-10.1); CHLORIDE 98 MMOL/L (99-107); CREATININE 1.06 MG/DL (0.60-1.10); GLUCOSE 80 MG/DL (70-104); MAGNESIUM 2.4 MG/DL (1.5-2.4); POTASSIUM 4.2 MMOL/L (3.5-5.1); SODIUM 136 MMOL/L (135-145); TOTAL CARBON DIOXIDE 28.9 MMOL/L (24-32); TOTAL PROTEIN 7.5 G/DL (6.4-8.2); eGFR 71 ML/MIN
[2022-12-20] MEDS ORDERED: PRED20TA PO (09:36)
[2022-12-20] MEDS ORDERED: AZIT-83 PO (09:36)
--- NOTE | 2022-12-20 12:10 | NUR ---
Patient was DC to home. PIV was removed with cannula intact. RX were escripted to [facility] on [address]. DC instructions and warning s/s were reviewed with patient and he verbalized understanding. Patient was wheeled to front of building to wait for pickup from his friend.
== END 2022-12-20 12:02 | disposition home or self-care (01) | DRG 140 ==
LOC: ER 07:15 → ED HOLD 11:34 → PCU 3S 14:48
PROVIDERS: ADMIT Family Medicine; ATTEND Family Medicine
PROC: 5A09357 Assistance with Respiratory Ventilation, Less than 24 Consecutive Hours, Continuous Positive Airway Pressure (ICD-10-PCS; principal; 2022-12-18)
DX: J44.1 Chronic obstructive pulmonary disease with (acute) exacerbation (principal); J96.00 Acute respiratory failure, unspecified whether with hypoxia or hypercapnia; I50.23 Acute on chronic systolic (congestive) heart failure; N17.9 Acute kidney failure, unspecified; E87.29 Other acidosis; Z20.822 Contact with and (suspected) exposure to COVID-19; I42.7 Cardiomyopathy due to drug and external agent; K74.60 Unspecified cirrhosis of liver; F15.10 Other stimulant abuse, uncomplicated; F17.210 Nicotine dependence, cigarettes, uncomplicated; R55 Syncope and collapse; R94.31 Abnormal electrocardiogram [ECG] [EKG]; I25.2 Old myocardial infarction; Z86.711 Personal history of pulmonary embolism; Z79.899 Other long term (current) drug therapy; Z71.51 Drug abuse counseling and surveillance of drug abuser
CPT/HCPCS: 36415; 36600; 71045; 71046; 80053; 82803; 83735; 83880; 84145; 84484; 85007; 85018; 85025; 87040; 87081; 87502; 87503; 87811; 93005; 94640; 94660; 94760; 99285; G0378; J1650; J1940; J2270; J2405; J2930; J7512

== ENCOUNTER 2023-06-02 07:00 | Emergency (ER) | payer MEDICAID ==
[~2023-06-02] VITALS: Ht 175.3 cm; Wt 140.0 kg
[~2023-06-02 07:00] MED LIST changes: +ALBU18HF2 PO; -ALBU8.5H17 INH; -ALBU8HFA PO; -ATOR20TA66 PO; -AZIT-83 PO; -COLC0.6C3 PO; +NITR0.4T51 SL; -SPIR25TA PO; +SPIR25TA5 PO
[2023-06-02 07:04] VITALS: TEMP 98.2
[2023-06-02] MEDS ORDERED: ipratropium/albuterol 3ml nebule NEB ONE ×2 (07:10→11:00)
[2023-06-02 07:14] VITALS: PULSE 108; RESP 17; O2SAT 96
[2023-06-02] MEDS ORDERED: methylPREDNISolone sod succ 125mg/2ml vial IV ONE (07:15)
[2023-06-02 07:19] VITALS: PULSE 110; RESP 19; O2SAT 95
[2023-06-02 07:33] LABS: BASOPHILS # (AUTO) 0.1 X10'3 (0-0.2); BASOPHILS % (AUTO) 1.1 % (0-1); EOSINOPHILS # (AUTO) 0.9 X10'3 (0-0.9); EOSINOPHILS % (AUTO) 7.7 % (0-6); HEMOGLOBIN 16.7 g/dl (14.0-17.9); LYMPHOCYTES # (AUTO) 2.3 X10'3 (1.1-4.8); LYMPHOCYTES % (AUTO) 20.7 % (21-51); MEAN CORPUSCULAR HEMOGLOBIN 31.5 PG (27.0-31.0); MEAN CORPUSCULAR HGB CONC 34.1 g/dL (33.0-36.5); MEAN CORPUSCULAR VOLUME 92.4 FL (78-98); MEAN PLATELET VOLUME 7.9 FL (7.4-10.4); MONOCYTES # (AUTO) 0.8 X10'3 (0-0.9); MONOCYTES % (AUTO) 7.4 % (2-12); NEUTROPHILS % (AUTO) 63.1 % (42-75); PLATELET COUNT 208 X10'3 (140-440); RED BLOOD COUNT 5.31 X10'6 (4.70-6.10); RED CELL DISTRIBUTION WIDTH 13.3 % (11.5-14.5); WHITE BLOOD COUNT 11.2 X10'3 (4.5-11.0)
[2023-06-02 07:52] LABS: ALANINE AMINOTRANSFERASE 33 U/L (12-78); ALBUMIN 3.8 G/DL (3.4-5.0); ALBUMIN/GLOBULIN RATIO 0.8 (1.1-1.5); ALKALINE PHOSPHATASE 78 IU/L (46-116); ANION GAP 6 (8-16); BILIRUBIN,TOTAL 1.8 MG/DL (0.1-1.0); BLOOD UREA NITROGEN 18 MG/DL (7-18); BUN/CREATININE RATIO 15.5 (10.0-20.0); CALCIUM 9.3 MG/DL (8.5-10.1); CHLORIDE 102 MMOL/L (99-107); CREATININE 1.16 MG/DL (0.60-1.10); GLUCOSE 112 MG/DL (70-104); SODIUM 136 MMOL/L (135-145); TOTAL CARBON DIOXIDE 27.6 MMOL/L (24-32); TOTAL PROTEIN 8.7 G/DL (6.4-8.2); eCRCL 68 ML/MIN; eGFR 64 ML/MIN
[2023-06-02 07:58] LABS: PRO BRAIN NATRIURETIC PEPTIDE 2033 PG/ML (0-125)
[2023-06-02 08:01] LABS: ASPARTATE AMINO TRANSFERASE 39 U/L (10-37); POTASSIUM 4.7 MMOL/L (3.5-5.1)
[2023-06-02] MEDS ORDERED: furosemide 40mg/4ml inj IV ONE (09:35)
[2023-06-02] MEDS ORDERED: CEPH-585 PO (10:29)
[2023-06-02] MEDS ORDERED: ALBU6.7H14 INH (10:42)
[2023-06-02] MEDS ORDERED: PRED20TA PO (10:42)
[2023-06-02 10:54] VITALS: PULSE 90; RESP 19; O2SAT 97
[2023-06-02 10:59] VITALS: PULSE 94; RESP 18; O2SAT 97
[2023-06-02 11:41] VITALS: BP 124/86; PULSE 95; RESP 16; O2SAT 91
== END 2023-06-02 12:00 | disposition home or self-care (01) ==
LOC: ER 07:01
DX: J45.901 Unspecified asthma with (acute) exacerbation (principal); Z20.822 Contact with and (suspected) exposure to COVID-19; I11.0 Hypertensive heart disease with heart failure; J44.9 Chronic obstructive pulmonary disease, unspecified; F15.10 Other stimulant abuse, uncomplicated; Z79.899 Other long term (current) drug therapy
CPT/HCPCS: 36415; 71045; 80053; 83880; 84145; 84484; 85025; 87811; 93005; 94640; 96374; 96375; 99291; J1940; J2930; 94760; A4615

== ENCOUNTER 2023-06-14 06:39 | Emergency (ER) | payer MEDICAID ==
[~2023-06-14 06:39] MED LIST changes: +ALBU6.7H14 INH; +CEPH-585 PO; +PRED20TA PO
[2023-06-14 06:40] VITALS: TEMP 97
[2023-06-14] MEDS ORDERED: methylPREDNISolone sod succ 125mg/2ml vial IV ONE (06:55)
[2023-06-14] MEDS ORDERED: furosemide 40mg/4ml inj IV ONE (06:55)
[2023-06-14] MEDS ORDERED: ipratropium 0.5 MG/2.5ML nebule IH ONE (06:55)
[2023-06-14 07:12] LABS: BASOPHILS # (AUTO) 0.1 X10'3 (0-0.2); BASOPHILS % (AUTO) 0.6 % (0-1); EOSINOPHILS # (AUTO) 0.7 X10'3 (0-0.9); EOSINOPHILS % (AUTO) 7.5 % (0-6); HEMATOCRIT 47.4 % (42.0-52.0); HEMOGLOBIN 16.1 g/dl (14.0-17.9); LYMPHOCYTES # (AUTO) 1.9 X10'3 (1.1-4.8); LYMPHOCYTES % (AUTO) 19.4 % (21-51); MEAN CORPUSCULAR HEMOGLOBIN 32.2 PG (27.0-31.0); MEAN CORPUSCULAR VOLUME 94.5 FL (78-98); MEAN PLATELET VOLUME 7.7 FL (7.4-10.4); MONOCYTES # (AUTO) 0.7 X10'3 (0-0.9); MONOCYTES % (AUTO) 7.7 % (2-12); NEUTROPHILS # (AUTO) 6.2 X10'3 (1.8-7.7); NEUTROPHILS % (AUTO) 64.8 % (42-75); PLATELET COUNT 166 X10'3 (140-440); RED BLOOD COUNT 5.02 X10'6 (4.70-6.10); WHITE BLOOD COUNT 9.5 X10'3 (4.5-11.0)
[2023-06-14 07:27] LABS: ALANINE AMINOTRANSFERASE 28 U/L (12-78); ALBUMIN 3.2 G/DL (3.4-5.0); ALBUMIN/GLOBULIN RATIO 0.8 (1.1-1.5); ALKALINE PHOSPHATASE 62 IU/L (46-116); ANION GAP 10 (8-16); ASPARTATE AMINO TRANSFERASE 25 U/L (10-37); BILIRUBIN,TOTAL 1.5 MG/DL (0.1-1.0); BLOOD UREA NITROGEN 18 MG/DL (7-18); BUN/CREATININE RATIO 15.8 (10.0-20.0); CALCIUM 8.9 MG/DL (8.5-10.1); CHLORIDE 103 MMOL/L (99-107); CREATININE 1.14 MG/DL (0.60-1.10); GLUCOSE 103 MG/DL (70-104); SODIUM 138 MMOL/L (135-145); TOTAL CARBON DIOXIDE 25.2 MMOL/L (24-32); TOTAL PROTEIN 7.1 G/DL (6.4-8.2); eGFR 66 ML/MIN
[2023-06-14 07:35] LABS: PRO BRAIN NATRIURETIC PEPTIDE 1091 PG/ML (0-125)
[2023-06-14 07:37] LABS: POTASSIUM 4.4 MMOL/L (3.5-5.1)
[2023-06-14 07:43] VITALS: PULSE 95; O2SAT 96
--- NOTE | 2023-06-14 07:53 | NUR ---
2934 PT TEACHING RE NEED FOR ACCURATE I/O POST LASIX ADMIN GIVEN URINAL PT ACKNOWLEDGED UNDERSTANDING " I CAN'T USE THE URINAL IN HERE " SUGGESTION TO TAKE URINAL TO BR PT AGREED PT AMBULATED TO BR TOOK URINAL "I CAN'T AIM" PT TEACHING AGAIN FOR THE NEED FOR ACCURATE I/O " I WILL TRY" " I PEED ALOT"
[2023-06-14] MEDS: albuterol 2.5 MG/3 ML nebule CONTNEB PRN ×2 (07:57→08:41)
--- NOTE | 2023-06-14 08:32 | NUR ---
RT COMPLETED NEB TX PT TOLERATED WELL AMBULATED TO BR VOIDED VIA URINAL 525 ML PALE YELLOW URINE
[2023-06-14 08:37] VITALS: PULSE 101; RESP 20
[2023-06-14] MEDS ORDERED: PRED20TA PO (13:28)
[2023-06-14 13:44] VITALS: BP 135/86; PULSE 98; RESP 19; O2SAT 93
== END 2023-06-14 13:47 | disposition home or self-care (01) ==
LOC: ER 06:40
DX: J44.1 Chronic obstructive pulmonary disease with (acute) exacerbation (principal); Z20.822 Contact with and (suspected) exposure to COVID-19
CPT/HCPCS: 36415; 71045; 80053; 83605; 83880; 84484; 85025; 87040; 87502; 87503; 87811; 93005; 94640; 94644; 96374; 96375; 99285; J1940; J2930; 94760; A4615; A7015

== ENCOUNTER 2023-07-09 02:21 | Inpatient (IN) | payer MEDICAID ==
[~2023-07-09] VITALS: Ht 175.3 cm; Wt 109.1 kg
[2023-07-09] MEDS ORDERED: azithromycin/NS 500mg/250ml 250 ML IV ONE (02:35)
[2023-07-09] MEDS ORDERED: methylPREDNISolone sod succ 125mg/2ml vial IV ONE (02:35)
[2023-07-09] MEDS ORDERED: ipratropium/albuterol 3ml nebule NEB ONE (02:35)
[2023-07-09 02:48] VITALS: PULSE 110; RESP 22; O2SAT 98
[2023-07-09 03:00] VITALS: PULSE 118; RESP 20; O2SAT 94
[2023-07-09 03:22] LABS: BASOPHILS # (AUTO) 0.1 X10'3 (0-0.2); EOSINOPHILS # (AUTO) 0.4 X10'3 (0-0.9); EOSINOPHILS % (AUTO) 6.6 % (0-6); HEMATOCRIT 41.2 % (42.0-52.0); HEMOGLOBIN 14.3 g/dl (14.0-17.9); LYMPHOCYTES % (AUTO) 29.2 % (21-51); MEAN CORPUSCULAR HEMOGLOBIN 32.2 PG (27.0-31.0); MEAN CORPUSCULAR HGB CONC 34.8 g/dL (33.0-36.5); MEAN CORPUSCULAR VOLUME 92.4 FL (78-98); MEAN PLATELET VOLUME 7.4 FL (7.4-10.4); MONOCYTES # (AUTO) 0.8 X10'3 (0-0.9); MONOCYTES % (AUTO) 11.3 % (2-12); NEUTROPHILS # (AUTO) 3.5 X10'3 (1.8-7.7); NEUTROPHILS % (AUTO) 51.9 % (42-75); PLATELET COUNT 161 X10'3 (140-440); RED BLOOD COUNT 4.46 X10'6 (4.70-6.10); WHITE BLOOD COUNT 6.8 X10'3 (4.5-11.0)
[2023-07-09 03:48] LABS: ALANINE AMINOTRANSFERASE 29 U/L (12-78); ALBUMIN 3.2 G/DL (3.4-5.0); ALBUMIN/GLOBULIN RATIO 0.9 (1.1-1.5); ALKALINE PHOSPHATASE 60 IU/L (46-116); ANION GAP 10 (8-16); ASPARTATE AMINO TRANSFERASE 29 U/L (10-37); BILIRUBIN,TOTAL 1.4 MG/DL (0.1-1.0); BLOOD UREA NITROGEN 28 MG/DL (7-18); BUN/CREATININE RATIO 21.4 (10.0-20.0); CALCIUM 8.9 MG/DL (8.5-10.1); CHLORIDE 102 MMOL/L (99-107); CREATININE 1.31 MG/DL (0.60-1.10); GLUCOSE 131 MG/DL (70-104); PRO BRAIN NATRIURETIC PEPTIDE 1915 PG/ML (0-125); SODIUM 137 MMOL/L (135-145); TOTAL CARBON DIOXIDE 25.4 MMOL/L (24-32); TOTAL PROTEIN 6.9 G/DL (6.4-8.2); eCRCL 60 ML/MIN; eGFR 56 ML/MIN
[2023-07-09] MEDS ORDERED: aspirin 81mg tab.chew PO ONE (04:25)
[2023-07-09] MEDS ORDERED: furosemide 10 MG/1 ML 10ml inj IV ONE (04:25)
[2023-07-09] MEDS ORDERED: magnesium hydroxide 30ml (MOM) UD suspension PO PRN (05:00)
[2023-07-09] MEDS ORDERED: ondansetron 4mg rapidly disintigrating tab PO PRN (05:00)
[2023-07-09] MEDS ORDERED: HYDROcodone/acetaminophen 10/325mg tab PO PRN (05:00)
[2023-07-09] MEDS ORDERED: HYDROcodone/acetaminophen 5mg/325mg tablet PO PRN (05:00)
[2023-07-09] MEDS ORDERED: ondansetron/PF 4mg/2ml inj IV PRN (05:00)
[2023-07-09] MEDS ORDERED: acetaminophen 650mg rectal suppository RC PRN (05:00)
[2023-07-09] MEDS ORDERED: bisacodyl 10mg suppository rectal RC PRN (05:00)
[2023-07-09] MEDS ORDERED: mag hydrox/Alum hydrox/simeth 30ml oral suspension PO PRN (05:00)
[2023-07-09] MEDS ORDERED: morphine 2 MG/ML inj. syringe IV PRN ×2 (05:00)
[2023-07-09] MEDS ORDERED: acetaminophen 325mg tablet PO PRN ×2 (05:00)
[2023-07-09] MEDS ORDERED: ALBU90AE2 IH (05:30)
[2023-07-09] MEDS ORDERED: albuterol 2.5 MG/3 ML nebule NEB PRN (05:40)
[2023-07-09 08:00] LABS: BILIRUBIN,URINE NEGATIVE (Neg); CLARITY,URINE CLEAR (Clear); COLOR,URINE YELLOW (Yellow); GLUCOSE, URINE NEGATIVE (Neg); KETONES,URINE NEGATIVE (Neg); LEUKOCYTE ESTERASE ,URINE NEGATIVE (Neg); NITRITES, URINE NEGATIVE (Neg); OCCULT BLOOD,URINE NEGATIVE (Neg); PH,URINE 5.5 (4.8-8.0); PROTEIN,URINE NEGATIVE (Neg); UA COLLECTION TYPE URINAL; UROBILINOGEN,URINE 0.2 E.U/dL (0.2-1.0)
[2023-07-09] MEDS ORDERED: methylPREDNISolone sod succ 125mg/2ml vial IV SCH (08:00)
[2023-07-09] MEDS ORDERED: lisinopril 2.5mg tablet PO SCH (08:00)
[2023-07-09] MEDS ORDERED: CefTRIAXone/D5W-Rocephin 1gm 50 ML IV SCH (08:00)
[2023-07-09] MEDS ORDERED: azithromycin/NS 500mg/250ml 250 ML IV SCH (08:00)
[2023-07-09] MEDS: atorvastatin 20mg tablet PO SCH (08:21)
[2023-07-09] MEDS: carvedilol 6.25mg tablet PO SCH ×2 (08:21→20:00)
[2023-07-09] MEDS: pantoprazole 40mg Tablet.DR PO SCH (08:21)
[2023-07-09] MEDS: docusate sod 100mg capsule PO SCH ×2 (08:21→20:00)
[2023-07-09] MEDS: aspirin 81mg, enteric-coated 1 TAB TABLET.DR PO SCH (08:22)
[2023-07-09] MEDS: heparin, porcine 5000 units/ml vial SQ SCH ×2 (08:23→16:14)
--- NOTE | 2023-07-09 08:33 | NUR ---
Pt compliant with scheduled medications, alert and oriented. able to make needs known. provided breakfast tray
[2023-07-09 08:58] LABS: LIPASE 31 U/L (16-77)
[2023-07-09 09:03] LABS: HEMOGLOBIN A1C 5.7 % (4.5-6.2)
[2023-07-09 09:13] LABS: MAGNESIUM 2.2 MG/DL (1.5-2.4); PHOSPHORUS 3.3 MG/DL (2.3-4.5)
[2023-07-09 09:23] LABS: URINE AMPHETAMINE SCREEN POSITIVE (Neg); URINE BARBITUATE SCREEN NEGATIVE (Neg); URINE BENZODIAZEPINES SCREEN NEGATIVE (Neg); URINE CANNABINOID SCREEN NEGATIVE (Neg); URINE COCAINE SCREEN NEGATIVE (Neg); URINE METHADONE SCREEN NEGATIVE (Neg); URINE OPIATE SCREEN NEGATIVE (Neg); URINE PHENCYCLIDINE SCREEN NEGATIVE (Neg)
[2023-07-09] MEDS: spironolactone 25 MG tablet PO SCH (09:24)
[2023-07-09 09:49] LABS: APTT 25 SECONDS (22-32); D-DIMER 2.05 MG/L FEU (0-0.50)
[2023-07-09 09:51] LABS: INR 0.9 INR
[2023-07-09 09:59] LABS: OSMOLALITY 293 MOSM/K (280-300)
--- NOTE | 2023-07-09 12:36 | NUR ---
Pt placed on hospital bed and provided lunch tray.
[2023-07-09] MEDS: furosemide 10 MG/1 ML 10ml inj IV SCH (13:08)
[2023-07-09] MEDS: EMPAGLIFLOZIN 10 MG TABLET PO SCH (13:48)
--- NOTE | 2023-07-09 15:25 | NUR ---
Pt asleep, audible snoring with regular respirations. No acute distress.
[2023-07-09] MEDS: methylPREDNISolone sod succ 125mg/2ml vial IV SCH (20:33)
[2023-07-09] MEDS ORDERED: temazepam 15mg capsule PO PRN (21:00)
--- NOTE | 2023-07-09 21:26 | NUR ---
pt given turkey sandwhich, jello, yogurt & apple juice s/p ultrasound.
[2023-07-09 23:19] VITALS: PULSE 106; RESP 18; O2SAT 96
[2023-07-10] MEDS: heparin, porcine 5000 units/ml vial SQ SCH ×2 (00:03→07:59)
[2023-07-10 03:36] LABS: BASOPHILS # (AUTO) 0.1 X10'3 (0-0.2); BASOPHILS % (AUTO) 0.4 % (0-1); EOSINOPHILS % (AUTO) 0.1 % (0-6); HEMATOCRIT 41.3 % (42.0-52.0); HEMOGLOBIN 14.5 g/dl (14.0-17.9); LYMPHOCYTES # (AUTO) 0.8 X10'3 (1.1-4.8); LYMPHOCYTES % (AUTO) 7.1 % (21-51); MEAN CORPUSCULAR HEMOGLOBIN 32.9 PG (27.0-31.0); MEAN CORPUSCULAR HGB CONC 35.2 g/dL (33.0-36.5); MEAN CORPUSCULAR VOLUME 93.5 FL (78-98); MEAN PLATELET VOLUME 7.8 FL (7.4-10.4); MONOCYTES # (AUTO) 0.4 X10'3 (0-0.9); MONOCYTES % (AUTO) 3.6 % (2-12); NEUTROPHILS # (AUTO) 10.4 X10'3 (1.8-7.7); NEUTROPHILS % (AUTO) 88.8 % (42-75); PLATELET COUNT 157 X10'3 (140-440); RED BLOOD COUNT 4.42 X10'6 (4.70-6.10); RED CELL DISTRIBUTION WIDTH 14.1 % (11.5-14.5); WHITE BLOOD COUNT 11.7 X10'3 (4.5-11.0)
[2023-07-10 03:53] LABS: ALANINE AMINOTRANSFERASE 28 U/L (12-78); ALBUMIN/GLOBULIN RATIO 0.7 (1.1-1.5); ALKALINE PHOSPHATASE 54 IU/L (46-116); ANION GAP 11 (8-16); ASPARTATE AMINO TRANSFERASE 13 U/L (10-37); BILIRUBIN,TOTAL 0.9 MG/DL (0.1-1.0); BLOOD UREA NITROGEN 26 MG/DL (7-18); BUN/CREATININE RATIO 17.3 (10.0-20.0); CALCIUM 8.9 MG/DL (8.5-10.1); CHLORIDE 101 MMOL/L (99-107); CHOL/HDL RATIO 2.3 (0.00-4.99); CHOLESTEROL 139 MG/DL (0-200); GLUCOSE 171 MG/DL (70-104); HDL CHOLESTEROL 60 MG/DL (35-60); LDL CHOLESTEROL 69 MG/DL (50-100); POTASSIUM 3.9 MMOL/L (3.5-5.1); SODIUM 135 MMOL/L (135-145); TOTAL PROTEIN 7.1 G/DL (6.4-8.2); TRIGLYCERIDES 43 MG/DL (20-135); eCRCL 52 ML/MIN; eGFR 48 ML/MIN
[2023-07-10 07:20] VITALS: BP 119/78; PULSE 106; RESP 18; TEMP 97.9; O2SAT 95
[2023-07-10] MEDS: atorvastatin 20mg tablet PO SCH (07:58)
[2023-07-10] MEDS: methylPREDNISolone sod succ 125mg/2ml vial IV SCH (07:58)
[2023-07-10] MEDS: aspirin 81mg, enteric-coated 1 TAB TABLET.DR PO SCH (07:59)
[2023-07-10] MEDS: pantoprazole 40mg Tablet.DR PO SCH (07:59)
[2023-07-10] MEDS: carvedilol 6.25mg tablet PO SCH (07:59)
[2023-07-10] MEDS: EMPAGLIFLOZIN 10 MG TABLET PO SCH (07:59)
[2023-07-10] MEDS: docusate sod 100mg capsule PO SCH (07:59)
[2023-07-10] MEDS ORDERED: sacubitril/valsartan 24mg-26mg tablet PO SCH (08:00)
[2023-07-10] MEDS: furosemide 10 MG/1 ML 10ml inj IV SCH (08:00)
[2023-07-10 08:36] VITALS: BP_SYST 124; PULSE 86
[2023-07-10] MEDS: spironolactone 25 MG tablet PO SCH (08:36)
--- NOTE | 2023-07-10 10:53 | NUR ---
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 Lipid panel is WNL. Pt currently on a 2 g Na restricted diet and eating well, documented with 100% PO intake of first meal. Skin intact per EMR. LBM 07/10 per EMR. No nutrition intervention warranted at this time. Will continue to follow and make recommendations as appropriate. Addendum: 07/10/23 at [address] Amended: Links added.
[2023-07-10] MEDS ORDERED: SACU1TAB PO (11:21)
[2023-07-10] MEDS ORDERED: EMPA10TA PO (11:24)
[2023-07-10] MEDS ORDERED: ATOR10TA PO (11:25)
--- NOTE | 2023-07-10 12:22 | NUR ---
Patient discharged home with son. Pt symptoms have resolved at this time and appears appropriate for discharge. IV taken out, tele dc'd. Pt states understanding of all discharge info at time of discharge. No meds in pharmacy. All belongings taken from room.
== END 2023-07-10 12:51 | disposition home or self-care (01) | DRG 194 ==
LOC: ER 02:22 → ED HOLD 05:07 → PCU 3S 07-10 07:33
PROVIDERS: ADMIT Family Medicine; ATTEND Internal Medicine
DX: I13.0 Hypertensive heart and chronic kidney disease with heart failure and stage 1 through stage 4 chronic kidney disease, or unspecified chronic kidney disease (principal); N17.9 Acute kidney failure, unspecified; J44.1 Chronic obstructive pulmonary disease with (acute) exacerbation; I42.7 Cardiomyopathy due to drug and external agent; E88.09 Other disorders of plasma-protein metabolism, not elsewhere classified; J45.901 Unspecified asthma with (acute) exacerbation; K76.0 Fatty (change of) liver, not elsewhere classified; I50.23 Acute on chronic systolic (congestive) heart failure; N18.30 Chronic kidney disease, stage 3 unspecified; E78.5 Hyperlipidemia, unspecified; E66.9 Obesity, unspecified; F15.129 Other stimulant abuse with intoxication, unspecified; Z20.822 Contact with and (suspected) exposure to COVID-19; N18.9 Chronic kidney disease, unspecified; I25.2 Old myocardial infarction; Z86.711 Personal history of pulmonary embolism; Z68.35 Body mass index [BMI] 35.0-35.9, adult; Z79.899 Other long term (current) drug therapy; Z79.82 Long term (current) use of aspirin
CPT/HCPCS: 36415; 71045; 76700; 80053; 80061; 80305; 81003; 83036; 83605; 83690; 83735; 83880; 83930; 84100; 84484; 85025; 85379; 85610; 85730; 87040; 87081; 87502; 87503; 87811; 93306; 94640; 94760; 96365; 99285; A6258; G0378; J0456; J0696; J1644; J1940; J2930

== ENCOUNTER 2023-07-25 14:53 | Emergency (ER) | payer MEDICAID ==
[~2023-07-25] VITALS: Ht 172.7 cm; Wt 113.0 kg
[~2023-07-25 14:53] MED LIST changes: -ALBU18HF2 PO; -ALBU6.7H14 INH; +ALBU90AE2 IH; +ATOR10TA PO; -CEPH-585 PO; +EMPA10TA PO; -LISI2.5T14 PO; -PRED20TA PO; +SACU1TAB PO
[2023-07-25] MEDS ORDERED: methylPREDNISolone sod succ 125mg/2ml vial IV ONE (15:05)
[2023-07-25] MEDS ORDERED: albuterol 2.5 MG/3 ML nebule CONTNEB ONE (15:05)
[2023-07-25 15:19] LABS: EOSINOPHILS # (AUTO) 0.5 X10'3 (0-0.9); HEMOGLOBIN 15.4 g/dl (14.0-17.9); LYMPHOCYTES # (AUTO) 1.7 X10'3 (1.1-4.8); MEAN CORPUSCULAR HEMOGLOBIN 32.2 PG (27.0-31.0)
[2023-07-25 15:21] LABS: BASOPHILS # (AUTO) 0.1 X10'3 (0-0.2); BASOPHILS % (AUTO) 1.1 % (0-1); EOSINOPHILS % (AUTO) 6.7 % (0-6); HEMATOCRIT 44.9 % (42.0-52.0); LYMPHOCYTES % (AUTO) 21.7 % (21-51); MEAN CORPUSCULAR HGB CONC 34.4 g/dL (33.0-36.5); MEAN CORPUSCULAR VOLUME 93.6 FL (78-98); MEAN PLATELET VOLUME 7.7 FL (7.4-10.4); MONOCYTES # (AUTO) 0.7 X10'3 (0-0.9); NEUTROPHILS # (AUTO) 4.8 X10'3 (1.8-7.7); NEUTROPHILS % (AUTO) 61.5 % (42-75); PLATELET COUNT 193 X10'3 (140-440); RED BLOOD COUNT 4.79 X10'6 (4.70-6.10); RED CELL DISTRIBUTION WIDTH 14.6 % (11.5-14.5); WHITE BLOOD COUNT 7.8 X10'3 (4.5-11.0)
[2023-07-25 15:34] LABS: ALANINE AMINOTRANSFERASE 23 U/L (12-78); ALBUMIN 3.1 G/DL (3.4-5.0); ALBUMIN/GLOBULIN RATIO 0.7 (1.1-1.5); ALKALINE PHOSPHATASE 66 IU/L (46-116); ANION GAP 11 (8-16); ASPARTATE AMINO TRANSFERASE 13 U/L (10-37); BILIRUBIN,TOTAL 2.1 MG/DL (0.1-1.0); BLOOD UREA NITROGEN 14 MG/DL (7-18); BUN/CREATININE RATIO 11.2 (10.0-20.0); CALCIUM 8.7 MG/DL (8.5-10.1); CHLORIDE 103 MMOL/L (99-107); CREATININE 1.25 MG/DL (0.60-1.10); GLUCOSE 104 MG/DL (70-104); POTASSIUM 3.9 MMOL/L (3.5-5.1); SODIUM 139 MMOL/L (135-145); TOTAL CARBON DIOXIDE 24.8 MMOL/L (24-32); TOTAL PROTEIN 7.4 G/DL (6.4-8.2); eCRCL 61 ML/MIN; eGFR 59 ML/MIN
[2023-07-25 15:41] LABS: PRO BRAIN NATRIURETIC PEPTIDE 1156 PG/ML (0-125)
[2023-07-25 16:03] VITALS: TEMP 97.3
[2023-07-25 16:49] VITALS: PULSE 97; PULSE 99; RESP 20; O2SAT 96
[2023-07-25] MEDS ORDERED: furosemide 20 MG/2 ML vial IV STA (17:19)
[2023-07-25 19:00] VITALS: RESP 20
[2023-07-25] MEDS ORDERED: PRED20TA PO (19:08)
[2023-07-25] MEDS ORDERED: ALBU18HF2 INH ×2 (19:08)
[2023-07-25 19:29] VITALS: BP 119/81; PULSE 100; O2SAT 97
== END 2023-07-25 19:31 | disposition home or self-care (01) ==
LOC: ER 14:53
DX: J45.901 Unspecified asthma with (acute) exacerbation (principal)
CPT/HCPCS: 36415; 71045; 80053; 83880; 84484; 85025; 93005; 94644; 96374; 96375; 99285; J1940; J2930; 94760; A4620

== ENCOUNTER 2023-08-01 04:02 | Inpatient (IN) | payer MEDICAID ==
[2023-08-01] VITALS (15 sets, daily range): BP systolic 111–144; BP diastolic 78–84; PULSE 96–112; RESP 16–24; TEMP 97–97.3; O2SAT 93–98
[~2023-08-01] VITALS: Ht 172.7 cm; Wt 112.0 kg
[~2023-08-01 04:02] MED LIST changes: +ALBU18HF2 INH
[2023-08-01] MEDS ORDERED: furosemide 10 MG/1 ML 10ml inj IV ONE (04:30)
[2023-08-01] MEDS ORDERED: NITROGLYCERIN 2.5 MG PO ONE (04:30)
[2023-08-01] MEDS ORDERED: albuterol 2.5 MG/3 ML nebule NEB ONE ×2 (04:35→06:50)
[2023-08-01] MEDS ORDERED: methylPREDNISolone sod succ 125mg/2ml vial IV ONE (04:35)
[2023-08-01 04:47] LABS: HEMATOCRIT 44.1 % (42.0-52.0)
[2023-08-01 04:49] LABS: BASOPHILS # (AUTO) 0.1 X10'3 (0-0.2); BASOPHILS % (AUTO) 1.1 % (0-1); EOSINOPHILS # (AUTO) 0.8 X10'3 (0-0.9); EOSINOPHILS % (AUTO) 6.8 % (0-6); HEMOGLOBIN 15.1 g/dl (14.0-17.9); LYMPHOCYTES % (AUTO) 16.5 % (21-51); MEAN CORPUSCULAR HEMOGLOBIN 32.3 PG (27.0-31.0); MEAN CORPUSCULAR HGB CONC 34.3 g/dL (33.0-36.5); MEAN CORPUSCULAR VOLUME 94.1 FL (78-98); MEAN PLATELET VOLUME 7.8 FL (7.4-10.4); MONOCYTES # (AUTO) 1.1 X10'3 (0-0.9); MONOCYTES % (AUTO) 8.8 % (2-12); NEUTROPHILS # (AUTO) 8.1 X10'3 (1.8-7.7); NEUTROPHILS % (AUTO) 66.8 % (42-75); PLATELET COUNT 241 X10'3 (140-440); RED BLOOD COUNT 4.68 X10'6 (4.70-6.10); RED CELL DISTRIBUTION WIDTH 14.9 % (11.5-14.5); WHITE BLOOD COUNT 12.1 X10'3 (4.5-11.0)
[2023-08-01] MEDS ORDERED: NITROGLYCERIN 6.5 MG PO STA (04:49)
[2023-08-01 05:07] LABS: ALANINE AMINOTRANSFERASE 24 U/L (12-78); ALBUMIN 3.3 G/DL (3.4-5.0); ALBUMIN/GLOBULIN RATIO 0.8 (1.1-1.5); ALKALINE PHOSPHATASE 62 IU/L (46-116); ANION GAP 11 (8-16); ASPARTATE AMINO TRANSFERASE 22 U/L (10-37); BILIRUBIN,TOTAL 0.9 MG/DL (0.1-1.0); BLOOD UREA NITROGEN 19 MG/DL (7-18); BUN/CREATININE RATIO 15.2 (10.0-20.0); CALCIUM 8.9 MG/DL (8.5-10.1); CHLORIDE 104 MMOL/L (99-107); CREATININE 1.25 MG/DL (0.60-1.10); GLUCOSE 99 MG/DL (70-104); POTASSIUM 4.2 MMOL/L (3.5-5.1); SODIUM 140 MMOL/L (135-145); TOTAL CARBON DIOXIDE 24.9 MMOL/L (24-32); TOTAL PROTEIN 7.3 G/DL (6.4-8.2); eCRCL 61 ML/MIN; eGFR 59 ML/MIN
[2023-08-01 05:14] LABS: PRO BRAIN NATRIURETIC PEPTIDE 2716 PG/ML (0-125)
[2023-08-01] MEDS ORDERED: metoclopramide 5 mg/ml inj IV ONE (05:20)
[2023-08-01] MEDS ORDERED: CefTRIAXone/D5W-Rocephin 1gm 50 ML IV ONE (05:20)
[2023-08-01] MEDS ORDERED: acetaminophen 325mg tablet PO ONE (05:40)
[2023-08-01] MEDS ORDERED: iohexol 350MG/ML 100ml bottle IV ONE (05:42)
[2023-08-01] MEDS ORDERED: heparin 10,000 units/1 ML INJ IV SCH (06:30)
[2023-08-01] MEDS ORDERED: heparin 10,000 units/1 ML INJ IV ONE ×2 (06:30→06:40)
[2023-08-01] MEDS ORDERED: heparin 10,000 units/1 ML INJ IV PRN (06:40)
[2023-08-01] MEDS: heparin 25,000 UNIT/250ml bag 250 ML IV PRN ×2 (06:59→20:57)
[2023-08-01] MEDS ORDERED: LISI2.5T14 PO (10:47)
[2023-08-01] MEDS ORDERED: HYDROcodone/acetaminophen 10/325mg tab PO PRN (10:55)
[2023-08-01] MEDS ORDERED: HYDROcodone/acetaminophen 5mg/325mg tablet PO PRN (10:55)
[2023-08-01] MEDS ORDERED: potassium Cl 40MEQ/1/2NS 520ml 520 ML IV PRN (10:55)
[2023-08-01] MEDS ORDERED: magnesium Cl slow-release 64mg tablet PO PRN (10:55)
[2023-08-01] MEDS ORDERED: magnesium hydroxide 30ml (MOM) UD suspension PO PRN (10:55)
[2023-08-01] MEDS ORDERED: magnesium 2GM in 50ml NS 50 ML IV PRN (10:55)
[2023-08-01] MEDS ORDERED: acetaminophen 325mg tablet PO PRN (10:55)
[2023-08-01] MEDS ORDERED: potassium Cl 20 mEq SR tablet PO PRN ×2 (10:55)
[2023-08-01] MEDS ORDERED: magnesium 4gm in 100ml NS 100 ML IV PRN (10:55)
[2023-08-01] MEDS ORDERED: ondansetron/PF 4mg/2ml inj IV PRN (10:55)
[2023-08-01] MEDS ORDERED: ipratropium/albuterol 3ml nebule NEB PRN ×2 (10:55→11:20)
[2023-08-01] MEDS ORDERED: mag hydrox/Alum hydrox/simeth 30ml oral suspension PO PRN (10:55)
[2023-08-01] MEDS ORDERED: furosemide 20 MG/2 ML vial IV ONE (11:25)
[2023-08-01] MEDS: ipratropium/albuterol 3ml nebule NEB SCH ×4 (12:10→22:55)
[2023-08-01] MEDS: azithromycin/NS 500mg/250ml 250 ML IV SCH (13:38)
[2023-08-01 14:16] LABS: BILIRUBIN,URINE NEGATIVE (Neg); CLARITY,URINE CLEAR (Clear); COLOR,URINE YELLOW (Yellow); GLUCOSE, URINE >=1000 mg/dl (Neg); KETONES,URINE NEGATIVE (Neg); LEUKOCYTE ESTERASE ,URINE NEGATIVE (Neg); NITRITES, URINE NEGATIVE (Neg); OCCULT BLOOD,URINE NEGATIVE (Neg); PH,URINE 5.5 (4.8-8.0); PROTEIN,URINE NEGATIVE (Neg); UROBILINOGEN,URINE 0.2 E.U/dL (0.2-1.0)
[2023-08-01 14:17] LABS: UA COLLECTION TYPE CLN CATCH MIDSTREAM
[2023-08-01 14:19] LABS: OXYGEN SATURATION (MIXED VEN) 56.1 % (60-80); PO2 MIXED VENOUS (TEMP COR) 28.4 mmHg (35-46)
[2023-08-01 14:20] LABS: BACTERIA,URINE NONE SEEN /HPF (Neg); MUCUS STRANDS FEW /LPF (Neg); RBC,URINE NONE SEEN /HPF (0-2); SQUAMOUS EPITHELIAL CELL,UR NONE SEEN /LPF (FEW); WBC,URINE NONE SEEN /HPF (0-4)
[2023-08-01 14:32] LABS: URINE AMPHETAMINE SCREEN POSITIVE (Neg); URINE BARBITUATE SCREEN NEGATIVE (Neg); URINE BENZODIAZEPINES SCREEN NEGATIVE (Neg); URINE CANNABINOID SCREEN NEGATIVE (Neg); URINE COCAINE SCREEN NEGATIVE (Neg); URINE METHADONE SCREEN NEGATIVE (Neg); URINE OPIATE SCREEN NEGATIVE (Neg); URINE PHENCYCLIDINE SCREEN NEGATIVE (Neg)
[2023-08-01] MEDS: methylPREDNISolone sod succ/PF 40mg inj. IV SCH ×2 (15:14→20:35)
[2023-08-01] MEDS: K and/or MAG REPLACEMENT MC SCH (20:00)
[2023-08-02] VITALS (12 sets, daily range): BP systolic 93–153; BP diastolic 46–86; PULSE 78–124; RESP 18–20; TEMP 98.1–98.7; O2SAT 92–98
[2023-08-02] MEDS: methylPREDNISolone sod succ/PF 40mg inj. IV SCH ×3 (03:14→19:56)
[2023-08-02] MEDS: ipratropium/albuterol 3ml nebule NEB SCH ×4 (03:21→21:43)
[2023-08-02 04:32] LABS: BASOPHILS # (AUTO) 0.1 X10'3 (0-0.2); BASOPHILS % (AUTO) 0.4 % (0-1); EOSINOPHILS % (AUTO) 0 % (0-6); HEMATOCRIT 44.3 % (42.0-52.0); HEMOGLOBIN 15.1 g/dl (14.0-17.9); LYMPHOCYTES # (AUTO) 1.1 X10'3 (1.1-4.8); LYMPHOCYTES % (AUTO) 7.5 % (21-51); MEAN CORPUSCULAR HGB CONC 34.2 g/dL (33.0-36.5); MEAN CORPUSCULAR VOLUME 93.8 FL (78-98); MEAN PLATELET VOLUME 8.3 FL (7.4-10.4); MONOCYTES # (AUTO) 0.4 X10'3 (0-0.9); MONOCYTES % (AUTO) 2.8 % (2-12); NEUTROPHILS # (AUTO) 13.3 X10'3 (1.8-7.7); NEUTROPHILS % (AUTO) 89.3 % (42-75); PLATELET COUNT 213 X10'3 (140-440); RED BLOOD COUNT 4.72 X10'6 (4.70-6.10); RED CELL DISTRIBUTION WIDTH 14.6 % (11.5-14.5); WHITE BLOOD COUNT 14.9 X10'3 (4.5-11.0)
[2023-08-02 04:50] LABS: ALBUMIN 3.3 G/DL (3.4-5.0); ANION GAP 11 (8-16); BLOOD UREA NITROGEN 21 MG/DL (7-18); BUN/CREATININE RATIO 16.8 (10.0-20.0); CALCIUM 9.1 MG/DL (8.5-10.1); CHLORIDE 100 MMOL/L (99-107); CREATININE 1.25 MG/DL (0.60-1.10); GLUCOSE 152 MG/DL (70-104); MAGNESIUM 2.1 MG/DL (1.5-2.4); POTASSIUM 3.7 MMOL/L (3.5-5.1); SODIUM 137 MMOL/L (135-145); TOTAL CARBON DIOXIDE 26.1 MMOL/L (24-32); eCRCL 61 ML/MIN; eGFR 59 ML/MIN
[2023-08-02] MEDS: furosemide 40mg/4ml inj IV SCH (11:21)
[2023-08-02] MEDS: azithromycin/NS 500mg/250ml 250 ML IV SCH (11:22)
[2023-08-02] MEDS: atorvastatin 10mg tablet PO SCH (11:34)
[2023-08-02] MEDS: EMPAGLIFLOZIN 10 MG TABLET PO SCH (11:34)
[2023-08-02] MEDS: aspirin 81mg, enteric-coated 1 TAB TABLET.DR PO SCH (11:34)
[2023-08-02] MEDS: lisinopril 2.5mg tablet PO SCH (11:34)
[2023-08-02] MEDS: spironolactone 25 MG tablet PO SCH (11:35)
[2023-08-02] MEDS: CefTRIAXone/D5W-Rocephin 1gm 50 ML IV SCH (13:23)
[2023-08-02] MEDS: heparin 25,000 UNIT/250ml bag 250 ML IV PRN (13:27)
[2023-08-02] MEDS: K and/or MAG REPLACEMENT MC SCH (20:00)
[2023-08-03] VITALS (13 sets, daily range): BP systolic 108–114; BP diastolic 57–73; PULSE 107–117; RESP 14–22; TEMP 97.5–98.3; O2SAT 90–97
[2023-08-03] MEDS: methylPREDNISolone sod succ/PF 40mg inj. IV SCH ×4 (01:03→23:56)
[2023-08-03] MEDS: ipratropium/albuterol 3ml nebule NEB SCH ×4 (02:48→21:30)
[2023-08-03 03:17] LABS: BASOPHILS # (AUTO) 0.1 X10'3 (0-0.2); BASOPHILS % (AUTO) 0.4 % (0-1); EOSINOPHILS % (AUTO) 0 % (0-6); HEMATOCRIT 42.3 % (42.0-52.0); HEMOGLOBIN 14.1 g/dl (14.0-17.9); LYMPHOCYTES # (AUTO) 0.9 X10'3 (1.1-4.8); MEAN CORPUSCULAR HEMOGLOBIN 31.6 PG (27.0-31.0); MEAN CORPUSCULAR HGB CONC 33.4 g/dL (33.0-36.5); MEAN CORPUSCULAR VOLUME 94.5 FL (78-98); MEAN PLATELET VOLUME 8.2 FL (7.4-10.4); MONOCYTES # (AUTO) 0.7 X10'3 (0-0.9); MONOCYTES % (AUTO) 4.4 % (2-12); NEUTROPHILS # (AUTO) 15.4 X10'3 (1.8-7.7); NEUTROPHILS % (AUTO) 90.2 % (42-75); PLATELET COUNT 207 X10'3 (140-440); RED BLOOD COUNT 4.48 X10'6 (4.70-6.10); RED CELL DISTRIBUTION WIDTH 14.7 % (11.5-14.5); WHITE BLOOD COUNT 17.1 X10'3 (4.5-11.0)
[2023-08-03 03:35] LABS: ANION GAP 9 (8-16); BLOOD UREA NITROGEN 32 MG/DL (7-18); BUN/CREATININE RATIO 24.8 (10.0-20.0); CALCIUM 8.8 MG/DL (8.5-10.1); CHLORIDE 102 MMOL/L (99-107); CREATININE 1.29 MG/DL (0.60-1.10); GLUCOSE 144 MG/DL (70-104); MAGNESIUM 2.2 MG/DL (1.5-2.4); SODIUM 137 MMOL/L (135-145); TOTAL CARBON DIOXIDE 26.5 MMOL/L (24-32); eCRCL 59 ML/MIN; eGFR 57 ML/MIN
[2023-08-03] MEDS: heparin 25,000 UNIT/250ml bag 250 ML IV PRN (04:51)
[2023-08-03] MEDS: K and/or MAG REPLACEMENT MC SCH ×2 (08:00→20:00)
[2023-08-03] MEDS: furosemide 40mg/4ml inj IV SCH (09:35)
[2023-08-03] MEDS: CefTRIAXone/D5W-Rocephin 1gm 50 ML IV SCH (09:42)
[2023-08-03] MEDS: atorvastatin 10mg tablet PO SCH (09:43)
[2023-08-03] MEDS: aspirin 81mg, enteric-coated 1 TAB TABLET.DR PO SCH (09:43)
[2023-08-03] MEDS: EMPAGLIFLOZIN 10 MG TABLET PO SCH (09:44)
[2023-08-03] MEDS: lisinopril 2.5mg tablet PO SCH (09:47)
[2023-08-03] MEDS: spironolactone 25 MG tablet PO SCH (09:48)
[2023-08-03] MEDS: apixaban 5mg tablet PO SCH ×2 (09:58→19:56)
[2023-08-03] MEDS: azithromycin/NS 500mg/250ml 250 ML IV SCH (10:40)
[2023-08-03] MEDS: carvedilol 6.25mg tablet PO SCH (19:56)
[2023-08-04] VITALS (7 sets, daily range): BP systolic 114–116; BP diastolic 61–72; PULSE 102–118; RESP 16–20; TEMP 96.9–97.8; O2SAT 95–97
[2023-08-04] MEDS: ipratropium/albuterol 3ml nebule NEB SCH ×2 (03:06→08:53)
[2023-08-04 07:03] LABS: BASOPHILS % (AUTO) 0.2 % (0-1); EOSINOPHILS % (AUTO) 0 % (0-6); HEMATOCRIT 40.8 % (42.0-52.0); HEMOGLOBIN 13.6 g/dl (14.0-17.9); LYMPHOCYTES # (AUTO) 0.8 X10'3 (1.1-4.8); LYMPHOCYTES % (AUTO) 5.2 % (21-51); MEAN CORPUSCULAR HEMOGLOBIN 31.8 PG (27.0-31.0); MEAN CORPUSCULAR HGB CONC 33.3 g/dL (33.0-36.5); MEAN CORPUSCULAR VOLUME 95.6 FL (78-98); MONOCYTES # (AUTO) 0.8 X10'3 (0-0.9); MONOCYTES % (AUTO) 5.1 % (2-12); NEUTROPHILS # (AUTO) 13.9 X10'3 (1.8-7.7); NEUTROPHILS % (AUTO) 89.5 % (42-75); PLATELET COUNT 196 X10'3 (140-440); RED BLOOD COUNT 4.27 X10'6 (4.70-6.10); RED CELL DISTRIBUTION WIDTH 14.7 % (11.5-14.5); WHITE BLOOD COUNT 15.5 X10'3 (4.5-11.0)
[2023-08-04 07:08] LABS: ALBUMIN 2.8 G/DL (3.4-5.0); ANION GAP 8 (8-16); BLOOD UREA NITROGEN 27 MG/DL (7-18); BUN/CREATININE RATIO 23.3 (10.0-20.0); CALCIUM 8.8 MG/DL (8.5-10.1); CHLORIDE 102 MMOL/L (99-107); CREATININE 1.16 MG/DL (0.60-1.10); GLUCOSE 138 MG/DL (70-104); MAGNESIUM 2.1 MG/DL (1.5-2.4); POTASSIUM 4.3 MMOL/L (3.5-5.1); SODIUM 136 MMOL/L (135-145); TOTAL CARBON DIOXIDE 26.4 MMOL/L (24-32); eCRCL 66 ML/MIN; eGFR 64 ML/MIN
[2023-08-04] MEDS: furosemide 40mg/4ml inj IV SCH (07:47)
[2023-08-04] MEDS: methylPREDNISolone sod succ/PF 40mg inj. IV SCH (07:48)
[2023-08-04] MEDS: K and/or MAG REPLACEMENT MC SCH (08:00)
[2023-08-04] MEDS: lisinopril 2.5mg tablet PO SCH (08:25)
[2023-08-04] MEDS: carvedilol 6.25mg tablet PO SCH (08:26)
[2023-08-04] MEDS: atorvastatin 10mg tablet PO SCH (08:26)
[2023-08-04] MEDS: EMPAGLIFLOZIN 10 MG TABLET PO SCH (08:27)
[2023-08-04] MEDS: aspirin 81mg, enteric-coated 1 TAB TABLET.DR PO SCH (08:27)
[2023-08-04] MEDS: apixaban 5mg tablet PO SCH (08:27)
[2023-08-04] MEDS: spironolactone 25 MG tablet PO SCH (08:30)
[2023-08-04] MEDS: CefTRIAXone/D5W-Rocephin 1gm 50 ML IV SCH (08:31)
[2023-08-04] MEDS ORDERED: CARV6.253 PO (13:25)
[2023-08-04] MEDS ORDERED: [UNRECOGNIZED DRUG - CODE] PO (13:25)
[2023-08-04] MEDS ORDERED: BUDE10.2 INH (13:25)
[2023-08-04] MEDS ORDERED: ATOR10TA PO (13:25)
[2023-08-04] MEDS ORDERED: SACU1TAB PO (13:25)
[2023-08-04] MEDS ORDERED: CEFD300C3 PO (13:25)
[2023-08-04] MEDS ORDERED: SPIR25TA5 PO (13:25)
[2023-08-04] MEDS ORDERED: FURO40TA4 PO (13:25)
[2023-08-04] MEDS ORDERED: PRED10TA23 PO (13:25)
[2023-08-04] MEDS ORDERED: ALBU8HFA INH (13:25)
[2023-08-04] MEDS ORDERED: APIX5TAB3 PO (13:25)
[2023-08-04] MEDS ORDERED: EMPA10TA PO (13:26)
[2023-08-04] MEDS ORDERED: methylPREDNISolone sod succ/PF 40mg inj. IV SCH (20:00)
== END 2023-08-04 15:00 | disposition home or self-care (01) | DRG 133 ==
LOC: ER 04:03 → ED HOLD 10:53 → EDBEDREQ 12:59 → ORTHO 4S 14:22
PROVIDERS: ADMIT Family Medicine; ATTEND Family Medicine
PROC: B32T1ZZ Computerized Tomography (CT Scan) of Left Pulmonary Artery using Low Osmolar Contrast (ICD-10-PCS; principal; 2023-08-01)
PROC: B3201ZZ Computerized Tomography (CT Scan) of Thoracic Aorta using Low Osmolar Contrast (ICD-10-PCS; 2023-08-01)
PROC: B32S1ZZ Computerized Tomography (CT Scan) of Right Pulmonary Artery using Low Osmolar Contrast (ICD-10-PCS; 2023-08-01)
DX: J96.21 Acute and chronic respiratory failure with hypoxia (principal); I26.99 Other pulmonary embolism without acute cor pulmonale; I50.23 Acute on chronic systolic (congestive) heart failure; I82.412 Acute embolism and thrombosis of left femoral vein; J44.1 Chronic obstructive pulmonary disease with (acute) exacerbation; I42.7 Cardiomyopathy due to drug and external agent; I13.0 Hypertensive heart and chronic kidney disease with heart failure and stage 1 through stage 4 chronic kidney disease, or unspecified chronic kidney disease; E66.9 Obesity, unspecified; I82.432 Acute embolism and thrombosis of left popliteal vein; G47.33 Obstructive sleep apnea (adult) (pediatric); N18.2 Chronic kidney disease, stage 2 (mild); Z20.822 Contact with and (suspected) exposure to COVID-19; I34.0 Nonrheumatic mitral (valve) insufficiency; F15.20 Other stimulant dependence, uncomplicated; I25.10 Atherosclerotic heart disease of native coronary artery without angina pectoris; I25.2 Old myocardial infarction; Z86.711 Personal history of pulmonary embolism; Z79.899 Other long term (current) drug therapy; Z79.82 Long term (current) use of aspirin; Z68.37 Body mass index [BMI] 37.0-37.9, adult
CPT/HCPCS: 36415; 71045; 71275; 80048; 80053; 80305; 81001; 82810; 83605; 83735; 83880; 84145; 84484; 85025; 85379; 85730; 87040; 87081; 87811; 93308; 93970; 94640; 94760; 97161; 99285; G0378; J0456; J0696; J1644; J1940; J2765; J2920; J2930; J3490; Q9967

== ENCOUNTER 2023-10-03 06:21 | Inpatient (IN) | payer MEDICAID ==
[~2023-10-03] VITALS: Ht 172.7 cm; Wt 111.4 kg
[~2023-10-03 06:21] MED LIST changes: -ALBU18HF2 INH; -ALBU90AE2 IH; +APIX5TAB3 PO; +BUDE10.2 INH; +CEFD300C3 PO; +[UNRECOGNIZED DRUG - CODE] PO
[2023-10-03] MEDS: ipratropium/albuterol 3ml nebule NEB ONE (07:11)
[2023-10-03 07:16] VITALS: PULSE 118; RESP 16; O2SAT 96
[2023-10-03 07:19] VITALS: PULSE 116; RESP 16; O2SAT 98
[2023-10-03 07:52] LABS: BASOPHILS # (AUTO) 0.1 X10'3 (0-0.2); BASOPHILS % (AUTO) 1.2 % (0-1); EOSINOPHILS # (AUTO) 0.1 X10'3 (0-0.9); HEMATOCRIT 49.4 % (42.0-52.0); HEMOGLOBIN 16.5 g/dl (14.0-17.9); LYMPHOCYTES % (AUTO) 29.9 % (21-51); MEAN CORPUSCULAR HEMOGLOBIN 32.3 PG (27.0-31.0); MEAN CORPUSCULAR HGB CONC 33.4 g/dL (33.0-36.5); MEAN CORPUSCULAR VOLUME 96.9 FL (78-98); MEAN PLATELET VOLUME 8.6 FL (7.4-10.4); MONOCYTES # (AUTO) 0.8 X10'3 (0-0.9); MONOCYTES % (AUTO) 11.1 % (2-12); NEUTROPHILS # (AUTO) 3.8 X10'3 (1.8-7.7); NEUTROPHILS % (AUTO) 55.8 % (42-75); PLATELET COUNT 181 X10'3 (140-440); RED CELL DISTRIBUTION WIDTH 15.1 % (11.5-14.5); WHITE BLOOD COUNT 6.8 X10'3 (4.5-11.0)
[2023-10-03 07:57] LABS: D-DIMER 2.66 MG/L FEU (0-0.50)
[2023-10-03 08:06] LABS: ALANINE AMINOTRANSFERASE 67 U/L (12-78); ALBUMIN 4.3 G/DL (3.4-5.0); ALBUMIN/GLOBULIN RATIO 1.4 (1.1-1.5); ALKALINE PHOSPHATASE 77 IU/L (46-116); ANION GAP 10 (8-16); BILIRUBIN,TOTAL 3.1 MG/DL (0.1-1.0); BLOOD UREA NITROGEN 31 MG/DL (7-18); CALCIUM 9.7 MG/DL (8.5-10.1); CHLORIDE 106 MMOL/L (99-107); CREATININE 2.07 MG/DL (0.60-1.10); GLUCOSE 149 MG/DL (70-104); SODIUM 142 MMOL/L (135-145); TOTAL PROTEIN 7.3 G/DL (6.4-8.2); eCRCL 37 ML/MIN; eGFR 33 ML/MIN
[2023-10-03] MEDS ORDERED: heparin 10,000 units/1 ML INJ IV PRN (08:10)
[2023-10-03 08:15] LABS: PRO BRAIN NATRIURETIC PEPTIDE < 30 PG/ML (0-125)
[2023-10-03 08:18] LABS: ASPARTATE AMINO TRANSFERASE 47 U/L (10-37); POTASSIUM 4.4 MMOL/L (3.5-5.1)
[2023-10-03] MEDS: normal saline 1000ML IV soln IVB ONE (08:50)
[2023-10-03] MEDS ORDERED: potassium Cl 40MEQ/1/2NS 520ml 520 ML IV PRN (09:50)
[2023-10-03] MEDS ORDERED: ondansetron/PF 4mg/2ml inj IV PRN (09:50)
[2023-10-03] MEDS ORDERED: mag hydrox/Alum hydrox/simeth 30ml oral suspension PO PRN (09:50)
[2023-10-03] MEDS ORDERED: magnesium 2GM in 50ml NS 50 ML IV PRN (09:50)
[2023-10-03] MEDS ORDERED: potassium Cl 20 mEq SR tablet PO PRN ×2 (09:50)
[2023-10-03] MEDS ORDERED: acetaminophen 325mg tablet PO PRN (09:50)
[2023-10-03] MEDS ORDERED: magnesium hydroxide 30ml (MOM) UD suspension PO PRN (09:50)
[2023-10-03] MEDS ORDERED: magnesium 4gm in 100ml NS 100 ML IV PRN (09:50)
[2023-10-03] MEDS ORDERED: magnesium Cl slow-release 64mg tablet PO PRN (09:50)
[2023-10-03] MEDS: heparin 10,000 units/1 ML INJ IV ONE (09:54)
[2023-10-03] MEDS: heparin 25,000 UNIT/250ml bag 250 ML IV PRN (09:55)
[2023-10-03 10:39] LABS: MAGNESIUM 1.9 MG/DL (1.5-2.4)
[2023-10-03] MEDS: furosemide 40mg/4ml inj IV SCH (11:55)
[2023-10-03] MEDS ORDERED: nitroGLYCERIN 0.4mg SUBLingual tab SL PRN (18:40)
[2023-10-03 19:30] VITALS: BP 131/94; PULSE 118; RESP 20; TEMP 97.7; O2SAT 94
[2023-10-03 20:00] VITALS: RESP 18; O2SAT 96
[2023-10-03] MEDS: K and/or MAG REPLACEMENT MC SCH (20:00)
[2023-10-03] MEDS: docusate sod 100mg capsule PO SCH (20:32)
[2023-10-03] MEDS: apixaban 5mg tablet PO SCH (20:33)
[2023-10-03] MEDS: carvedilol 6.25mg tablet PO SCH (20:33)
[2023-10-03 22:00] VITALS: BP 115/83; PULSE 54; RESP 16; TEMP 97; O2SAT 97
[2023-10-03] MEDS: budesonide 0.5mg/2ml UD nebule IH SCH (23:16)
[2023-10-03] MEDS: albuterol 2.5 MG/3 ML nebule NEB SCH (23:16)
[2023-10-03 23:34] VITALS: PULSE 102; RESP 18; O2SAT 95
[2023-10-04] VITALS (17 sets, daily range): BP systolic 74–100; BP diastolic 48–71; PULSE 77–114; RESP 15–24; TEMP 97.2–98; O2SAT 91–97
[2023-10-04] MEDS: EMPAGLIFLOZIN 10 MG TABLET PO SCH (00:18)
[2023-10-04] MEDS: sacubitril/valsartan 24mg-26mg tablet PO SCH (00:18)
[2023-10-04 06:39] LABS: BASOPHILS # (AUTO) 0.1 X10'3 (0-0.2); BASOPHILS % (AUTO) 1.1 % (0-1); EOSINOPHILS # (AUTO) 0.2 X10'3 (0-0.9); HEMATOCRIT 45.4 % (42.0-52.0); HEMOGLOBIN 15.3 g/dl (14.0-17.9); LYMPHOCYTES # (AUTO) 1.6 X10'3 (1.1-4.8); LYMPHOCYTES % (AUTO) 25.6 % (21-51); MEAN CORPUSCULAR HEMOGLOBIN 32.6 PG (27.0-31.0); MEAN CORPUSCULAR HGB CONC 33.8 g/dL (33.0-36.5); MEAN CORPUSCULAR VOLUME 96.6 FL (78-98); MEAN PLATELET VOLUME 8.6 FL (7.4-10.4); MONOCYTES # (AUTO) 0.6 X10'3 (0-0.9); MONOCYTES % (AUTO) 9.6 % (2-12); NEUTROPHILS # (AUTO) 3.6 X10'3 (1.8-7.7); NEUTROPHILS % (AUTO) 59.7 % (42-75); PLATELET COUNT 166 X10'3 (140-440); RED BLOOD COUNT 4.71 X10'6 (4.70-6.10); RED CELL DISTRIBUTION WIDTH 15.4 % (11.5-14.5); WHITE BLOOD COUNT 6.1 X10'3 (4.5-11.0)
[2023-10-04 06:48] LABS: ANION GAP 12 (8-16); BLOOD UREA NITROGEN 21 MG/DL (7-18); BUN/CREATININE RATIO 16.4 (10.0-20.0); CALCIUM 8.2 MG/DL (8.5-10.1); CHLORIDE 105 MMOL/L (99-107); CREATININE 1.28 MG/DL (0.60-1.10); GLUCOSE 99 MG/DL (70-104); MAGNESIUM 1.6 MG/DL (1.5-2.4); POTASSIUM 3.5 MMOL/L (3.5-5.1); SODIUM 142 MMOL/L (135-145); TOTAL CARBON DIOXIDE 24.7 MMOL/L (24-32); eCRCL 59 ML/MIN; eGFR 57 ML/MIN
[2023-10-04] MEDS: spironolactone 25 MG tablet PO SCH (08:00)
[2023-10-04] MEDS: atorvastatin 10mg tablet PO SCH (09:38)
[2023-10-04] MEDS: aspirin 81mg, enteric-coated 1 TAB TABLET.DR PO SCH (09:39)
[2023-10-04] MEDS: morphine 2 MG/ML inj. syringe IV PRN (20:28)
[2023-10-04] MEDS: ringers solution, lacted 1,000 ML IV ONE (20:29)
[2023-10-04] MEDS: potassium Cl 20 mEq SR tablet PO STA (22:08)
[2023-10-05] VITALS (24 sets, daily range): BP systolic 89–128; BP diastolic 43–80; PULSE 54–116; RESP 14–29; TEMP 97.4–99.7; O2SAT 90–97
[2023-10-05] MEDS: magnesium oxide 400mg tablet PO ONE (05:29)
[2023-10-05 06:49] LABS: BASOPHILS # (AUTO) 0.1 X10'3 (0-0.2); BASOPHILS % (AUTO) 0.7 % (0-1); EOSINOPHILS # (AUTO) 0.3 X10'3 (0-0.9); EOSINOPHILS % (AUTO) 2.9 % (0-6); HEMATOCRIT 48.1 % (42.0-52.0); HEMOGLOBIN 16.1 g/dl (14.0-17.9); LYMPHOCYTES # (AUTO) 0.9 X10'3 (1.1-4.8); LYMPHOCYTES % (AUTO) 10.1 % (21-51); MEAN CORPUSCULAR HEMOGLOBIN 32.4 PG (27.0-31.0); MEAN CORPUSCULAR HGB CONC 33.5 g/dL (33.0-36.5); MEAN CORPUSCULAR VOLUME 96.6 FL (78-98); MEAN PLATELET VOLUME 8.5 FL (7.4-10.4); MONOCYTES # (AUTO) 0.8 X10'3 (0-0.9); MONOCYTES % (AUTO) 8.6 % (2-12); NEUTROPHILS # (AUTO) 7.2 X10'3 (1.8-7.7); NEUTROPHILS % (AUTO) 77.7 % (42-75); PLATELET COUNT 185 X10'3 (140-440); RED BLOOD COUNT 4.97 X10'6 (4.70-6.10); WHITE BLOOD COUNT 9.3 X10'3 (4.5-11.0)
[2023-10-05 07:08] LABS: ANION GAP 10 (8-16); BLOOD UREA NITROGEN 17 MG/DL (7-18); BUN/CREATININE RATIO 12.7 (10.0-20.0); CALCIUM 8.6 MG/DL (8.5-10.1); CHLORIDE 102 MMOL/L (99-107); CREATININE 1.34 MG/DL (0.60-1.10); GLUCOSE 123 MG/DL (70-104); MAGNESIUM 1.6 MG/DL (1.5-2.4); POTASSIUM 3.5 MMOL/L (3.5-5.1); SODIUM 138 MMOL/L (135-145); eCRCL 57 ML/MIN; eGFR 54 ML/MIN
[2023-10-05] MEDS: DOBUTamine-DoBUTrex 500mg/D5W 250 ML IV SCH (10:38)
[2023-10-06] VITALS: BP 101/71; PULSE 103
[2023-10-06 02:00] VITALS: BP 116/74; PULSE 97; RESP 16; TEMP 99.6; O2SAT 94
[2023-10-06 04:00] VITALS: BP 125/79; PULSE 102
[2023-10-06 06:00] VITALS: BP 168/103; PULSE 84; RESP 18; TEMP 98.2; O2SAT 92
[2023-10-06 07:16] LABS: BASOPHILS # (AUTO) 0.1 X10'3 (0-0.2); BASOPHILS % (AUTO) 1.1 % (0-1); EOSINOPHILS # (AUTO) 0.6 X10'3 (0-0.9); EOSINOPHILS % (AUTO) 6.9 % (0-6); HEMATOCRIT 47.1 % (42.0-52.0); HEMOGLOBIN 16.2 g/dl (14.0-17.9); LYMPHOCYTES # (AUTO) 1.1 X10'3 (1.1-4.8); LYMPHOCYTES % (AUTO) 14.1 % (21-51); MEAN CORPUSCULAR HEMOGLOBIN 32.6 PG (27.0-31.0); MEAN CORPUSCULAR HGB CONC 34.3 g/dL (33.0-36.5); MEAN PLATELET VOLUME 8.4 FL (7.4-10.4); MONOCYTES # (AUTO) 0.9 X10'3 (0-0.9); MONOCYTES % (AUTO) 11.6 % (2-12); NEUTROPHILS # (AUTO) 5.3 X10'3 (1.8-7.7); NEUTROPHILS % (AUTO) 66.3 % (42-75); PLATELET COUNT 167 X10'3 (140-440); RED BLOOD COUNT 4.96 X10'6 (4.70-6.10); RED CELL DISTRIBUTION WIDTH 14.8 % (11.5-14.5); WHITE BLOOD COUNT 8.1 X10'3 (4.5-11.0)
[2023-10-06 07:31] LABS: ALBUMIN 2.8 G/DL (3.4-5.0); ANION GAP 10 (8-16); BLOOD UREA NITROGEN 17 MG/DL (7-18); BUN/CREATININE RATIO 16.2 (10.0-20.0); CALCIUM 8.3 MG/DL (8.5-10.1); CHLORIDE 101 MMOL/L (99-107); CREATININE 1.05 MG/DL (0.60-1.10); GLUCOSE 99 MG/DL (70-104); MAGNESIUM 1.8 MG/DL (1.5-2.4); POTASSIUM 3.6 MMOL/L (3.5-5.1); SODIUM 137 MMOL/L (135-145); TOTAL CARBON DIOXIDE 25.6 MMOL/L (24-32); eCRCL 72 ML/MIN; eGFR 72 ML/MIN
[2023-10-06] MEDS ORDERED: FURO40TA4 PO (10:39)
[2023-10-06] MEDS ORDERED: CARV3.122 PO (10:39)
[2023-10-06] MEDS ORDERED: APIX5TAB3 PO (10:39)
[2023-10-06] MEDS ORDERED: EMPA10TA PO (10:39)
[2023-10-06 11:00] VITALS: BP 89/65; PULSE 97; RESP 20; TEMP 97.1; O2SAT 97
[2023-10-06] MEDS ORDERED: SPIR25TA5 PO (12:42)
[2023-10-10] MEDS ORDERED: apixaban 5mg tablet PO SCH (20:00)
== END 2023-10-06 13:10 | disposition left against medical advice (07) | DRG 194 ==
LOC: ER 06:22 → ED HOLD 09:58 → PCU 3S 19:17
PROVIDERS: ADMIT Internal Medicine; ATTEND Internal Medicine
PROC: CB221ZZ Tomographic (Tomo) Nuclear Medicine Imaging of Lungs and Bronchi using Technetium 99m (Tc-99m) (ICD-10-PCS; principal; 2023-10-03)
DX: I13.0 Hypertensive heart and chronic kidney disease with heart failure and stage 1 through stage 4 chronic kidney disease, or unspecified chronic kidney disease (principal); D68.59 Other primary thrombophilia; N17.9 Acute kidney failure, unspecified; I42.7 Cardiomyopathy due to drug and external agent; I50.23 Acute on chronic systolic (congestive) heart failure; Z53.21 Procedure and treatment not carried out due to patient leaving prior to being seen by health care provider; F17.200 Nicotine dependence, unspecified, uncomplicated; F15.10 Other stimulant abuse, uncomplicated; N18.2 Chronic kidney disease, stage 2 (mild); J44.9 Chronic obstructive pulmonary disease, unspecified; Z79.82 Long term (current) use of aspirin; Z79.01 Long term (current) use of anticoagulants; Z79.899 Other long term (current) drug therapy; I25.2 Old myocardial infarction; Z95.5 Presence of coronary angioplasty implant and graft; Z86.711 Personal history of pulmonary embolism
CPT/HCPCS: 36415; 71045; 78582; 80048; 80053; 83735; 83880; 84145; 84484; 85025; 85379; 85730; 87081; 93005; 93970; 94640; 94760; 99285; A9539; A9540; G0378; J1250; J1644; J1940; J2270; J7030; J7120

== ENCOUNTER 2023-10-10 11:40 | Emergency (ER) | payer MEDICAID ==
[~2023-10-10] VITALS: Ht 172.7 cm; Wt 111.8 kg
[~2023-10-10 11:40] MED LIST changes: +CARV3.122 PO; -CARV6.253 PO; -CEFD300C3 PO; -SACU1TAB PO
[2023-10-10 11:50] VITALS: BP 139/102; PULSE 106; RESP 22; TEMP 97; O2SAT 99
[2023-10-10 12:35] LABS: BASOPHILS # (AUTO) 0.1 X10'3 (0-0.2); BASOPHILS % (AUTO) 0.8 % (0-1); EOSINOPHILS # (AUTO) 0.1 X10'3 (0-0.9); EOSINOPHILS % (AUTO) 0.9 % (0-6); HEMATOCRIT 51.9 % (42.0-52.0); HEMOGLOBIN 17.3 g/dl (14.0-17.9); LYMPHOCYTES % (AUTO) 20.8 % (21-51); MEAN CORPUSCULAR HEMOGLOBIN 31.9 PG (27.0-31.0); MEAN CORPUSCULAR HGB CONC 33.4 g/dL (33.0-36.5); MEAN CORPUSCULAR VOLUME 95.6 FL (78-98); MEAN PLATELET VOLUME 8.1 FL (7.4-10.4); MONOCYTES # (AUTO) 1.1 X10'3 (0-0.9); MONOCYTES % (AUTO) 11.1 % (2-12); NEUTROPHILS # (AUTO) 6.4 X10'3 (1.8-7.7); NEUTROPHILS % (AUTO) 66.4 % (42-75); PLATELET COUNT 239 X10'3 (140-440); RED BLOOD COUNT 5.42 X10'6 (4.70-6.10); RED CELL DISTRIBUTION WIDTH 14.9 % (11.5-14.5); WHITE BLOOD COUNT 9.6 X10'3 (4.5-11.0)
[2023-10-10 12:54] LABS: ALBUMIN 4.1 G/DL (3.4-5.0); ALKALINE PHOSPHATASE 82 IU/L (46-116); ANION GAP 12 (8-16); BILIRUBIN,TOTAL 4.6 MG/DL (0.1-1.0); BLOOD UREA NITROGEN 40 MG/DL (7-18); BUN/CREATININE RATIO 24.7 (10.0-20.0); CHLORIDE 94 MMOL/L (99-107); CREATININE 1.62 MG/DL (0.60-1.10); GLUCOSE 99 MG/DL (70-104); POTASSIUM 4.3 MMOL/L (3.5-5.1); SODIUM 129 MMOL/L (135-145); TOTAL CARBON DIOXIDE 22.6 MMOL/L (24-32); eCRCL 47 ML/MIN; eGFR 44 ML/MIN
[2023-10-10 12:57] LABS: PRO BRAIN NATRIURETIC PEPTIDE 8275 PG/ML (0-125)
[2023-10-10 12:59] LABS: ALANINE AMINOTRANSFERASE 1047 U/L (12-78); ASPARTATE AMINO TRANSFERASE 1239 U/L (10-37); TOTAL PROTEIN 8.1 G/DL (6.4-8.2)
== END 2023-10-10 14:37 | disposition left against medical advice (07) ==
LOC: ER 11:41
DX: R06.02 Shortness of breath (principal); Z53.21 Procedure and treatment not carried out due to patient leaving prior to being seen by health care provider
CPT/HCPCS: 36415; 80053; 83880; 84484; 85025; 93005; 99281

== ENCOUNTER 2023-10-11 02:36 | Emergency (ER) | payer MEDICAID ==
[~2023-10-11] VITALS: Ht 172.7 cm; Wt 129.0 kg
[2023-10-11 03:54] LABS: ALBUMIN 3.7 G/DL (3.4-5.0); ANION GAP 9 (8-16); BLOOD UREA NITROGEN 38 MG/DL (7-18); BUN/CREATININE RATIO 22.2 (10.0-20.0); CALCIUM 8.8 MG/DL (8.5-10.1); CHLORIDE 93 MMOL/L (99-107); CREATININE 1.71 MG/DL (0.60-1.10); GLUCOSE 149 MG/DL (70-104); POTASSIUM 4.4 MMOL/L (3.5-5.1); PRO BRAIN NATRIURETIC PEPTIDE 7958 PG/ML (0-125); SODIUM 129 MMOL/L (135-145); TOTAL CARBON DIOXIDE 26.9 MMOL/L (24-32); eCRCL 44 ML/MIN; eGFR 41 ML/MIN
[2023-10-11 04:05] LABS: BASOPHILS # (AUTO) 0.1 X10'3 (0-0.2); BASOPHILS % (AUTO) 0.7 % (0-1); EOSINOPHILS # (AUTO) 0.2 X10'3 (0-0.9); EOSINOPHILS % (AUTO) 1.7 % (0-6); HEMATOCRIT 50.6 % (42.0-52.0); LYMPHOCYTES # (AUTO) 2.5 X10'3 (1.1-4.8); LYMPHOCYTES % (AUTO) 27.3 % (21-51); MEAN CORPUSCULAR HEMOGLOBIN 31.8 PG (27.0-31.0); MEAN CORPUSCULAR HGB CONC 33.5 g/dL (33.0-36.5); MEAN PLATELET VOLUME 8.7 FL (7.4-10.4); MONOCYTES # (AUTO) 1.2 X10'3 (0-0.9); MONOCYTES % (AUTO) 13.2 % (2-12); NEUTROPHILS # (AUTO) 5.1 X10'3 (1.8-7.7); NEUTROPHILS % (AUTO) 57.1 % (42-75); PLATELET COUNT 245 X10'3 (140-440); RED BLOOD COUNT 5.33 X10'6 (4.70-6.10); RED CELL DISTRIBUTION WIDTH 14.9 % (11.5-14.5)
[2023-10-11 04:50] LABS: URINE AMPHETAMINE SCREEN POSITIVE (Neg); URINE BARBITUATE SCREEN NEGATIVE (Neg); URINE BENZODIAZEPINES SCREEN NEGATIVE (Neg); URINE CANNABINOID SCREEN NEGATIVE (Neg); URINE COCAINE SCREEN NEGATIVE (Neg); URINE METHADONE SCREEN NEGATIVE (Neg); URINE OPIATE SCREEN NEGATIVE (Neg); URINE PHENCYCLIDINE SCREEN NEGATIVE (Neg)
[2023-10-11] MEDS: furosemide 10 MG/1 ML 10ml inj IV ONE (05:12)
[2023-10-11 05:52] VITALS: TEMP 98.7
[2023-10-11 09:32] VITALS: BP 109/72; PULSE 99; RESP 18; O2SAT 99
[2023-10-11] MEDS: nitroGLYCERIN 1gm ointment UD TP ONE (09:39)
[2023-10-11] MEDS: aspirin 325mg tablet PO ONE (09:41)
== END 2023-10-11 11:02 | disposition home or self-care (01) ==
LOC: ER 02:36
DX: I50.9 Heart failure, unspecified (principal); J44.9 Chronic obstructive pulmonary disease, unspecified; F15.90 Other stimulant use, unspecified, uncomplicated; Z79.899 Other long term (current) drug therapy; Z79.82 Long term (current) use of aspirin
CPT/HCPCS: 36415; 71045; 80048; 80305; 83880; 84484; 85025; 93005; 96374; 99285; J1940; A4615

== ENCOUNTER 2024-10-23 05:29 | Inpatient (IN) | payer MEDICAID ==
[~2024-10-23] VITALS: Ht 172.7 cm; Wt 110.0 kg
[2024-10-23 06:41] LABS: BASOPHILS % (AUTO) 0.8 % (0-1); EOSINOPHILS # (AUTO) 0.1 X10'3 (0-0.9); EOSINOPHILS % (AUTO) 2.5 % (0-6); HEMATOCRIT 45.6 % (42.0-52.0); HEMOGLOBIN 15.6 g/dl (14.0-17.9); LYMPHOCYTES # (AUTO) 0.8 X10'3 (1.1-4.8); LYMPHOCYTES % (AUTO) 16.1 % (21-51); MEAN CORPUSCULAR HEMOGLOBIN 32.5 PG (27.0-31.0); MEAN CORPUSCULAR HGB CONC 34.2 g/dL (33.0-36.5); MEAN PLATELET VOLUME 8.3 FL (7.4-10.4); MONOCYTES # (AUTO) 0.6 X10'3 (0-0.9); MONOCYTES % (AUTO) 13.2 % (2-12); NEUTROPHILS # (AUTO) 3.2 X10'3 (1.8-7.7); NEUTROPHILS % (AUTO) 67.4 % (42-75); PLATELET COUNT 125 X10'3 (140-440); RED CELL DISTRIBUTION WIDTH 14.6 % (11.5-14.5); WHITE BLOOD COUNT 4.8 X10'3 (4.5-11.0)
[2024-10-23] MEDS: ipratropium/albuterol 3ml nebule NEB PRN (06:52)
[2024-10-23 06:55] VITALS: PULSE 100; PULSE 103; RESP 19; O2SAT 97
[2024-10-23 07:06] LABS: ALANINE AMINOTRANSFERASE 90 U/L (12-78); ALBUMIN 3.3 G/DL (3.4-5.0); ALKALINE PHOSPHATASE 80 IU/L (46-116); ANION GAP 10 (8-16); ASPARTATE AMINO TRANSFERASE 100 U/L (10-37); BILIRUBIN,TOTAL 5.2 MG/DL (0.1-1.0); BLOOD UREA NITROGEN 21 MG/DL (7-18); BUN/CREATININE RATIO 16.9 (10.0-20.0); CALCIUM 8.5 MG/DL (8.5-10.1); CHLORIDE 99 MMOL/L (99-107); CREATININE 1.24 MG/DL (0.60-1.10); GLUCOSE 122 MG/DL (70-104); POTASSIUM 3.5 MMOL/L (3.5-5.1); SODIUM 134 MMOL/L (135-145); TOTAL CARBON DIOXIDE 24.6 MMOL/L (24-32); eCRCL 61 ML/MIN; eGFR 59 ML/MIN
[2024-10-23 07:13] LABS: PRO BRAIN NATRIURETIC PEPTIDE 3843 PG/ML (0-125)
[2024-10-23] MEDS: furosemide 10 MG/1 ML 10ml inj IV ONE (07:16)
[2024-10-23] MEDS: carVEDilol 3.125mg tablet PO ONE (07:16)
[2024-10-23] MEDS: apixaban 5mg tablet PO ONE (07:16)
[2024-10-23 07:24] LABS: ALBUMIN/GLOBULIN RATIO 0.9 (1.1-1.5); TOTAL PROTEIN 6.9 G/DL (6.4-8.2)
[2024-10-23 07:59] LABS: ETHANOL < 10 MG/DL (<10)
[2024-10-23] MEDS ORDERED: morphine 2 MG/ML inj. syringe IV PRN (08:30)
[2024-10-23] MEDS ORDERED: acetaminophen 325mg tablet PO PRN (08:30)
[2024-10-23] MEDS ORDERED: magnesium sulf-water 4G/100mL 100 ML IV PRN (08:30)
[2024-10-23] MEDS ORDERED: potassium Cl 40MEQ/1/2NS 520ml 520 ML IV PRN (08:30)
[2024-10-23] MEDS ORDERED: ondansetron/PF 4mg/2ml inj IV PRN (08:30)
[2024-10-23] MEDS ORDERED: magnesium sulf-water 2g/50mL 50 ML IV PRN (08:30)
[2024-10-23] MEDS ORDERED: magnesium Cl slow-release 64mg tablet PO PRN (08:30)
[2024-10-23] MEDS ORDERED: potassium Cl 20 mEq SR tablet PO PRN (08:30)
[2024-10-23 08:34] LABS: URINE AMPHETAMINE SCREEN POSITIVE (Neg); URINE BARBITUATE SCREEN NEGATIVE (Neg); URINE BENZODIAZEPINES SCREEN NEGATIVE (Neg); URINE CANNABINOID SCREEN NEGATIVE (Neg); URINE COCAINE SCREEN NEGATIVE (Neg); URINE METHADONE SCREEN NEGATIVE (Neg); URINE OPIATE SCREEN NEGATIVE (Neg); URINE PHENCYCLIDINE SCREEN NEGATIVE (Neg)
[2024-10-23 09:31] LABS: MAGNESIUM 1.7 MG/DL (1.5-2.4); POTASSIUM 3.3 MMOL/L (3.5-5.1)
[2024-10-23] MEDS: potassium Cl 20 mEq SR tablet PO PRN (11:51)
[2024-10-23 16:50] VITALS: BP 138/77; PULSE 65; RESP 14; TEMP 98.2; O2SAT 97
[2024-10-23 17:49] VITALS: BP 114/80; PULSE 99; RESP 20; TEMP 97.7; O2SAT 95
[2024-10-23 18:00] VITALS: BP 114/80; PULSE 99; RESP 20; TEMP 97.7; O2SAT 95
[2024-10-23 20:00] VITALS: RESP 18; O2SAT 95
[2024-10-23] MEDS: K and/or MAG REPLACEMENT MC SCH (20:24)
[2024-10-23] MEDS: guaiFENesin ER 600mg tablet PO ONE (20:24)
[2024-10-23] MEDS: hydrOXYzine 25 MG tablet PO ONE (20:25)
[2024-10-23 22:00] VITALS: BP 120/88; PULSE 101; RESP 20; TEMP 98.1; O2SAT 93
[2024-10-24] VITALS (14 sets, daily range): BP systolic 110–134; BP diastolic 78–98; PULSE 81–105; RESP 16–24; TEMP 96.8–97.4; O2SAT 91–97
[2024-10-24] MEDS: hydrOXYzine 25 MG tablet PO ONE ×2 (03:25→22:33)
[2024-10-24 07:33] LABS: BASOPHILS % (AUTO) 1.2 % (0-1); EOSINOPHILS # (AUTO) 0.2 X10'3 (0-0.9); EOSINOPHILS % (AUTO) 4.3 % (0-6); HEMOGLOBIN 15.7 g/dl (14.0-17.9); LYMPHOCYTES # (AUTO) 1.2 X10'3 (1.1-4.8); LYMPHOCYTES % (AUTO) 29.7 % (21-51); MEAN CORPUSCULAR HEMOGLOBIN 32.4 PG (27.0-31.0); MEAN CORPUSCULAR VOLUME 95.3 FL (78-98); MEAN PLATELET VOLUME 8.6 FL (7.4-10.4); MONOCYTES # (AUTO) 0.7 X10'3 (0-0.9); MONOCYTES % (AUTO) 17.5 % (2-12); NEUTROPHILS # (AUTO) 1.9 X10'3 (1.8-7.7); NEUTROPHILS % (AUTO) 47.3 % (42-75); PLATELET COUNT 126 X10'3 (140-440); RED BLOOD COUNT 4.83 X10'6 (4.70-6.10); RED CELL DISTRIBUTION WIDTH 14.8 % (11.5-14.5)
[2024-10-24 07:40] LABS: ALBUMIN 3.2 G/DL (3.4-5.0); ANION GAP 11 (8-16); BLOOD UREA NITROGEN 24 MG/DL (7-18); BUN/CREATININE RATIO 19.5 (10.0-20.0); CALCIUM 8.6 MG/DL (8.5-10.1); CHLORIDE 101 MMOL/L (99-107); CREATININE 1.23 MG/DL (0.60-1.10); GLUCOSE 77 MG/DL (70-104); MAGNESIUM 1.7 MG/DL (1.5-2.4); POTASSIUM 3.8 MMOL/L (3.5-5.1); SODIUM 135 MMOL/L (135-145); TOTAL CARBON DIOXIDE 22.8 MMOL/L (24-32); eCRCL 61 ML/MIN; eGFR 60 ML/MIN
[2024-10-24 08:01] LABS: TOTAL CELLS COUNTED 100
[2024-10-24 08:02] LABS: PLATELET ESTIMATE DECREASED
[2024-10-24] MEDS ORDERED: nitroGLYCERIN 0.4mg SUBLingual tab SL PRN (08:50)
[2024-10-24] MEDS: atorvastatin 10mg tablet PO SCH (09:09)
[2024-10-24] MEDS: furosemide 40mg/4ml inj IV SCH (09:09)
[2024-10-24] MEDS ORDERED: PERFLUTREN PROTEIN-A MICROSPHR (Optison) 0.22 MG/ML 3ML VIAL IV ONE (12:15)
[2024-10-24] MEDS: ipratropium/albuterol 3ml nebule NEB SCH (13:30)
[2024-10-24] MEDS: Budesonide/Formoterol Fumarate (Symbicort 160-4.5 Mcg Inhaler) IH SCH (20:00)
[2024-10-24] MEDS: methylPREDNISolone sod succ/PF 40mg inj. IV ONE (20:00)
[2024-10-24] MEDS: carVEDilol 3.125mg tablet PO SCH (20:13)
[2024-10-24] MEDS: apixaban 5mg tablet PO SCH (20:13)
[2024-10-24] MEDS ORDERED: methylPREDNISolone sod succ 125mg/2ml vial IV ONE (20:15)
[2024-10-24] MEDS: methylPREDNISolone sod succ 125mg/2ml vial IV SCH (20:16)
[2024-10-24] MEDS: guaiFENesin ER 600mg tablet PO ONE (22:32)
[2024-10-24] MEDS: methylPREDNISolone sod succ 125mg/2ml vial IV ONE (22:32)
[2024-10-25] VITALS (11 sets, daily range): BP systolic 119–122; BP diastolic 87; PULSE 88–106; RESP 16–20; TEMP 97.1–97.5; O2SAT 94–99
[2024-10-25 07:10] LABS: BASOPHILS % (AUTO) 0.6 % (0-1); EOSINOPHILS % (AUTO) 0.1 % (0-6); HEMATOCRIT 48.8 % (42.0-52.0); HEMOGLOBIN 16.6 g/dl (14.0-17.9); LYMPHOCYTES # (AUTO) 0.6 X10'3 (1.1-4.8); LYMPHOCYTES % (AUTO) 16.8 % (21-51); MEAN CORPUSCULAR HEMOGLOBIN 32.6 PG (27.0-31.0); MEAN CORPUSCULAR HGB CONC 34.1 g/dL (33.0-36.5); MEAN CORPUSCULAR VOLUME 95.8 FL (78-98); MEAN PLATELET VOLUME 8.8 FL (7.4-10.4); MONOCYTES # (AUTO) 0.1 X10'3 (0-0.9); MONOCYTES % (AUTO) 4.3 % (2-12); NEUTROPHILS # (AUTO) 2.7 X10'3 (1.8-7.7); NEUTROPHILS % (AUTO) 78.2 % (42-75); PLATELET COUNT 122 X10'3 (140-440); RED BLOOD COUNT 5.09 X10'6 (4.70-6.10); RED CELL DISTRIBUTION WIDTH 15.2 % (11.5-14.5); WHITE BLOOD COUNT 3.5 X10'3 (4.5-11.0)
[2024-10-25 07:13] LABS: ALBUMIN 3.3 G/DL (3.4-5.0); ANION GAP 12 (8-16); BLOOD UREA NITROGEN 29 MG/DL (7-18); BUN/CREATININE RATIO 22.8 (10.0-20.0); CALCIUM 8.9 MG/DL (8.5-10.1); CHLORIDE 100 MMOL/L (99-107); CREATININE 1.27 MG/DL (0.60-1.10); GLUCOSE 133 MG/DL (70-104); MAGNESIUM 1.7 MG/DL (1.5-2.4); POTASSIUM 4.6 MMOL/L (3.5-5.1); SODIUM 134 MMOL/L (135-145); TOTAL CARBON DIOXIDE 21.9 MMOL/L (24-32); eCRCL 59 ML/MIN; eGFR 58 ML/MIN
[2024-10-25] MEDS: aspirin 81mg, enteric-coated 1 TAB TABLET.DR PO SCH (10:02)
[2024-10-25] MEDS: spironolactone 25 MG tablet PO SCH (11:26)
[2024-10-25] MEDS ORDERED: IPRA3AMP9 NEB (11:51)
[2024-10-25] MEDS ORDERED: PRED10TA23 PO (11:51)
== END 2024-10-25 14:00 | disposition home health service (06) | DRG 194 ==
LOC: ER 05:31 → ED HOLD 08:29 → PCU 3S 16:39
PROVIDERS: ADMIT Internal Medicine; ATTEND Internal Medicine
DX: I50.23 Acute on chronic systolic (congestive) heart failure (principal); E78.5 Hyperlipidemia, unspecified; F15.10 Other stimulant abuse, uncomplicated; R74.01 Elevation of levels of liver transaminase levels; J44.9 Chronic obstructive pulmonary disease, unspecified; Z79.01 Long term (current) use of anticoagulants; I25.2 Old myocardial infarction; Z79.51 Long term (current) use of inhaled steroids; Z79.82 Long term (current) use of aspirin; Z86.711 Personal history of pulmonary embolism
CPT/HCPCS: 36415; 71045; 80048; 80053; 80305; 80320; 83735; 83880; 84132; 84484; 85007; 85025; 87081; 93005; 93306; 94640; 94760; 96374; 99285; G0378; J1940; J2919; Q0177